=== PATIENT | female | born 1990 | race Caucasian/White ===

== ENCOUNTER → 2016-05-09 | Outpatient (CLI) | payer BC ==
[2016-05-09 10:33] LABS: CH 29.8; HCT 37.6 % (34.0-46.0); HDW 2.51; HGB 12.2 gm/dL (11.4-16.0); MCH 28.6 pg (25.0-35.0); MCHC 32.5 g/dL (31.0-37.0); MCV 87.9 fL (80.0-100.0); Mean Platelet Volume 7.5; RBC 4.28 m/uL (3.80-5.40); RDW 12.3 % (11.5-15.5); WBC 5.6 k/uL (3.8-10.6)
--- NOTE | 2016-05-09 10:44 | US ---
EXAMINATION TYPE: US OB <= 14 wk fetus DATE OF EXAM: 05/09/2016 10:08 AM COMPARISON: NONE CLINICAL HISTORY: Confirm Dates Z36. Abdominal cramping EXAM PERFORMED: Transabdominal (TA) EXAM MEASUREMENTS: GESTATIONAL AGE / DATING Physician Established: not established Dates by LMP: (13 weeks/5 days) EDC: 11/09/16 Dates by First Scan: no prior Dates by Current Scan for: (13 weeks/6 days) EDC: 11/08/16 MATERNAL ANATOMY Uterus: 15.5 x 6.2 x 9.8cm Right Ovary: 3.2 x 2.3 x 2.0cm Left Ovary: 3.8 x 1.2 x 2.2cm Post CDS / Adnexa: appears wnl Presence of free fluid: no GESTATION / SURVEY CRL: 7.8cm (13 weeks/6 days) Yolk Sac (normal less than 6mm): not seen Heart Rate: 154 bpm Rhythm: Normal IUP: Viable IUP Date of LMP: 02/03/16 Beta HcG (if available): unavailable TECHNOLOGIST IMPRESSION: Single viable IUP 13wks/6days with MARLY of 11/08/16 IMPRESSION: Viable intrauterine gestation with a gestational age of 13 weeks 6 days +/- 12 days. Nay mated date of confinement based on this examination is 11/08/2016.
[2016-05-09 10:55] LABS: Glucose 75 mg/dL (74-99); Non-African American GFR(MDRD) >60 (>60 ml/min/1.73 sqM)
[2016-05-09 11:25] LABS: Hepatitis B Surface Ag Index 0.05
[2016-05-10 06:37] LABS: HIV-1/HIV-2 Ab Screen NONREAC (NON REAC)
== END | disposition home or self-care (01) ==
LOC: RADUSWWP 09:42 → MERGE 09:42
PROVIDERS: ATTEND Obstetrics & Gynecology
DX: Z36 Encounter for antenatal screening of mother (principal); O26.811 Pregnancy related exhaustion and fatigue, first trimester; Z3A.13 13 weeks gestation of pregnancy
CPT/HCPCS: 36415; 76801; 82565; 82947; 85027; 86762; 86780; 86850; 86900; 86901; 87340; 87389

== ENCOUNTER → 2016-06-14 | Outpatient (CLI) | payer BC ==
--- NOTE | 2016-06-14 12:22 | US ---
EXAMINATION TYPE: US OB anatomy transabd DATE OF EXAM: 06/14/2016 11:51 AM COMPARISON: NONE HISTORY: LGA TECHNIQUE: EXAM MEASUREMENTS: GESTATIONAL AGE / DATING Physician Established: (18 weeks/6 days) EDC: 11/09/2016 Dates by LMP: (18 weeks/6 days) EDC: 11/09/2016 Dates by First Scan: (19 weeks/0 days) EDC: 11/08/2016 Dates by Current Scan for: (18 weeks/6 days) EDC: 11/09/2016 SURVEY IUP: Single PLACENTA: Posterior PREVIA: Low Lying MISHEL: 12.5 cm Normal CERVICAL LENGTH (transabdominal: norm > 3.0cm): 3.9 cm BIOMETRY PRESENTATION: Breech BPD: 4.2 cm 18 weeks / 6 days HC: 15.5 cm 18 weeks / 4 days AC: 12.9 cm 18 weeks / 4 days FL: 2.9 cm 19 weeks / 0 days ESTIMATED WEIGHT IN GRAMS: 251 grams ESTIMATED WEIGHT IN LBS/OZS: 0 lbs. 9 oz. WEIGHT PERCENTAGE BASED ON ESTABLISHED DATE: 33 % HC/AC: 1.2 FL/AC: 22% HEART RATE: 149 bpm RHYTHM: Normal ANATOMY SEEN (within normal limits): Lateral Vent (< 1 cm) 0.8 cm Cisterna Magna (< 1.1 cm) 0.4 cm Nuchal Fold (< 0.6 cm) 0.2 cm Cerebellum (varies with age) 1.7 cm Choroid Plexus (bilateral) Midline Falx Cavus Septi Pellucidi Four Chamber Heart Outflow tracts: LVOT Stomach Situs Nose / Lips Diaphragm Kidneys (bilateral) Bladder Cord Insert Three Vessel Cord Longitudinal Spine Transverse Spine Arms (bilateral) Legs (bilateral) ANATOMY SUBOPTIMALLY VISUALIZED: Outflow tracts: RVOT TECHNOLOGIST IMPRESSION: growth according to dates IMPRESSION: 1. Single live intrauterine with established gestational age of 18 weeks 6 days. Current ul trasound biometry remains exactly concordant placing the child at the 33rd percentile for weight. 2. Only the RVOT was suboptimally imaged. The global project manager notes a normal appearance during real-time scanning. If desired, the patient can be brought back for a rescan in 1 to 2 weeks for reimaging of t he RVOT. The remaining visualized anatomy appears normal. 3. Slightly low-lying posterior placenta approximately 2.5 cm from the internal cervical os.
== END | disposition home or self-care (01) ==
LOC: RADUSWWP 10:58 → MERGE 11:00
PROVIDERS: ATTEND Obstetrics & Gynecology
DX: O36.62X0 Maternal care for excessive fetal growth, second trimester, not applicable or unspecified (principal); Z3A.18 18 weeks gestation of pregnancy
CPT/HCPCS: 76811

== ENCOUNTER → 2016-07-25 | Outpatient (CLI) | payer BC ==
[2016-07-25 10:07] LABS: CH 29.9; CHCM 33.4; HDW 2.45; HGB 12.4 gm/dL (11.4-16.0); MCH 29.3 pg (25.0-35.0); MCHC 32.6 g/dL (31.0-37.0); Mean Platelet Volume 7.1; RBC 4.22 m/uL (3.80-5.40); RDW 12.9 % (11.5-15.5); WBC 11.5 k/uL (3.8-10.6)
== END | disposition home or self-care (01) ==
LOC: LABWHC1 08:49
PROVIDERS: ATTEND Obstetrics & Gynecology
DX: Z34.82 Encounter for supervision of other normal pregnancy, second trimester (principal); Z3A.00 Weeks of gestation of pregnancy not specified
CPT/HCPCS: 36415; 82950; 85027

== ENCOUNTER 2016-11-11 13:25 | Inpatient (IN) | payer BC ==
[2016-11-11] MEDS ORDERED: METHYLERGONOVINE 0.2 MG/ML 1 ML AMP IM PRN (13:42)
[2016-11-11] MEDS ORDERED: OXYTOCIN 10 UNIT/ML 1 ML VIAL IM PRN (13:42)
[2016-11-11] MEDS ORDERED: LIDOCAINE 1% (PF) 10 MG/ML (30 ML SDV) SQ PRN (13:42)
[2016-11-11] MEDS ORDERED: TERBUTALINE 1 MG/ML VIAL SQ PRN (13:42)
[2016-11-11] MEDS ORDERED: CARBOPROST TROMETHAMINE 250 MCG/ML 1 ML AMP IM PRN (13:42)
[2016-11-11 14:00] VITALS: BMI 32.5
[2016-11-11] MEDS: OXYTOCIN 20 UNITS/1000 ML NS 1,000 ML IV SCH (14:02)
[2016-11-11] MEDS: LACTATED RINGERS 1,000 ML IV SCH ×2 (14:02→23:39)
[2016-11-11 14:11] LABS: Basophils # (A) 0.1 k/uL (0-0.2); Basophils % (A) 0 %; CH 30.6; CHCM 33.9; Eosinophils # (A) 0.4 k/uL (0-0.7); Eosinophils % (A) 3 %; HCT 43.5 % (34.0-46.0); HDW 2.21; HGB 14.3 gm/dL (11.4-16.0); Luc # (Auto) 0.23; Luc % (Auto) 2; Lymphocytes # (A) 2.3 k/uL (1.0-4.8); Lymphocytes % (A) 15 %; MCH 29.8 pg (25.0-35.0); MCHC 32.8 g/dL (31.0-37.0); MCV 90.8 fL (80.0-100.0); Mean Platelet Volume 7.6; Monocytes # (A) 0.8 k/uL (0-1.0); Monocytes % (A) 6 %; Neutrophils # (A) 10.9 k/uL (1.3-7.7); Neutrophils % (A) 74 %; RBC 4.79 m/uL (3.80-5.40); RDW 13.7 % (11.5-15.5); WBC 14.7 k/uL (3.8-10.6)
[2016-11-11] MEDS: CLINDAMYCIN 900 MG in DEXTROSE 5% IN WATER 50 ML IVPB SCH ×4 (14:16→23:39)
[2016-11-11] MEDS ORDERED: SODIUM CHLORIDE 0.9% 100 ML BAG ONE (19:50)
[2016-11-11] MEDS ORDERED: BUPIVACAINE (PF) 0.25% 30 ML VIAL ONE (19:50)
[2016-11-11] MEDS ORDERED: fentaNYL (PF) 50 MCG/ML 5 ML AMP ONE (19:50)
[2016-11-11] MEDS ORDERED: BUPIVACAINE (PF) 0.25% 25 ML, fentaNYL (PF) 200 MCG in SODIUM CHLORIDE 0.9% 71 ML EPIDURAL ONE (20:19)
[2016-11-11] MEDS ORDERED: BENZOCAINE/MENTHOL SPRAY 1 GM/SPRAY AEROSOL TOPICAL PRN (23:04)
[2016-11-11] MEDS ORDERED: HYDROCORTISONE 2.5% RECTAL CREAM 30 GM TUBE RECTAL PRN (23:04)
[2016-11-11] MEDS ORDERED: WITCH HAZEL 1 EACH MED..PAD TOPICAL PRN (23:04)
[2016-11-11] MEDS ORDERED: diphenhydrAMINE 50 MG/ML 1 ML VIAL IVP PRN ×2 (23:04)
[2016-11-11] MEDS ORDERED: diphenhydrAMINE 25 MG CAP PO PRN (23:04)
[2016-11-11] MEDS ORDERED: Acetaminophen-Codeine 300-30mg TAB PO PRN ×2 (23:04)
[2016-11-11] MEDS ORDERED: ACETAMINOPHEN TAB 325 MG TAB PO PRN (23:04)
[2016-11-11] MEDS ORDERED: ZOLPIDEM 5 MG TAB PO PRN (23:04)
[2016-11-11] MEDS ORDERED: LANOLIN CREAM 5 GM TUBE TOPICAL PRN (23:04)
[2016-11-11] MEDS ORDERED: diphenhydrAMINE 50 MG CAP PO PRN (23:04)
[2016-11-11] MEDS ORDERED: SIMETHICONE 80 MG CHEWABLE PO PRN (23:04)
[2016-11-11] MEDS ORDERED: BISACODYL 10 MG SUPP RECTAL PRN (23:04)
--- NOTE | 2016-11-11 23:08 | P.HPOB ---
History of Present Illness H&P Date: 11/11/16 Chief Complaint: Intrauterine at 40 weeks: Oligohydramnios Patient is a 26 old at 40 weeks 2 days' gestation who was seen in the office for a ultrasound today for MISHEL and estimated weight. Estimated weight was the 30th percentile however the amniotic fluid index was 4.9. Due to oligohydramnios a discussion was held with the patient whether to induce her or to monitor through the weekend I did explain that there was really no benefit that I can come up with were not getting her delivered as she is past her due date and has oligohydramnios and at this point since we cannot verify that there is something else going on it would be safer prostaglandin deliver her. She was admitted for induction of labor and artificial rupture of membranes has been performed. Include clear fluid is noted. Her course otherwise had been unremarkable and she was feeling well at this time. Pertinent labs did include A+ blood type Rh and it was negative rubella was immune hepatitis B surface antigen and HIV and RPR were all negative. Group B strep was also negative. On physical exam vital signs are stable she is afebrile. Heart regular, lungs clear, extremities without pain. Osteopathic exam is unremarkable. She was dilated to approximately 2 cm 80% effaced -2 station and heart tones in the 130s 2040s and are reactive. Assessment intrauterine at term. Plan expect spontaneous vaginal delivery. Past Medical History Past Medical History: Asthma, Skin Disorder History of Any Multi-Drug Resistant Organisms: None Reported Past Surgical History: No Surgical Hx Reported Additional Past Surgical History / Comment(s): wisdom teeth Past Anesthesia/Blood Transfusion Reactions: No Reported Reaction Past Psychological History: No Psychological Hx Reported Smoking Status: Former smoker Past Alcohol Use History: Occasional Past Drug Use History: None Reported - Past Family History Father Family Medical History: Hypertension Medications and Allergies Home Medications Medication Instructions Recorded Confirmed Type Albuterol Inhaler [Ventolin 2 puff INHALATION Q4HR PRN 08/13/13 11/11/16 History Inhaler] Allergies Allergy/AdvReac Type Severity Reaction Status Date / Time Penicillins Allergy Nausea & Verified 11/11/16 13:27 Vomiting sesame seed Allergy Anaphylaxis Verified 11/11/16 13:29 Exam Osteopathic Statement: *. No significant issues noted on an osteopathic structural exam other than those noted in the History and Physical/Consult. - Vital Signs Vital signs: Vital Signs Temp Pulse Resp BP Pulse Ox 11/11/16 22:54 97.4 F L 90 17 130/69 96 11/11/16 13:26 97.2 F L 96 14 133/78 Intake and Output 11/11/16 11/11/16 11/12/16 14:59 22:59 06:59 Intake Total 900 Balance 900 Intake: IV 900 Clindamycin 900 mg In 900 Dextrose 5% in Water 50 ml @ 100 mls/hr IVPB Q8H [facility] Rx#:[id number] Other: # Voids 0 Weight 86.183 kg Patient Weight 11/12/16 06:59 Weight 86.183 kg Results Result Diagrams: 11/11/16 14:00 Abnormal Lab Results - Last 24 Hours (Table) 11/11/16 Range/Units 14:00 WBC 14.7 H (3.8-10.6) k/uL Neutrophils # 10.9 H (1.3-7.7) k/uL
--- NOTE | 2016-11-11 23:09 | P.PROBDLV ---
Vaginal Delivery Note - . Vaginal Delivery Note: Patient progressed complete and pushing with spontaneous vaginal delivery of a viable female over an intact perineum. Falling deliver the head interim posterior shoulders were easily delivered with gentle downward and upward traction followed by the remainder the baby. Mouth and nares were then bulb suctioned and baby was placed on the mother's abdomen where the umbilical cord was allowed to pulsate for 30 seconds prior to clamping and cutting. Nursery personnel was then present to assume care. Placenta was then delivered intact and Pitocin was added to the IV. scores were 8 and 9 at one and 5 minutes respectively and the weight was 7 lbs. 0 oz. Both mother and baby appear stable following delivery.
[2016-11-12] MEDS: IBUPROFEN 600 MG TAB PO PRN ×3 (05:25→19:52)
--- NOTE | 2016-11-12 08:23 | P.PNOBGVD ---
Subjective - Subjective Principal diagnosis: day 1 Interval history: Patient is involuting, voiding and she is tolerating her diet. She voices no complaints. We'll continue care for today. With expectation for discharge home tomorrow. Patient reports: Reports appetite normal, Reports voiding normally, Reports pain well controlled, Reports ambulating normally [place]: doing well Objective - Latest Vital Signs Latest vital signs: Vital Signs Temp Pulse Resp BP Pulse Ox 11/12/16 04:00 98.2 F 92 17 126/75 97 11/12/16 00:24 96.4 F L 88 18 140/61 98 11/11/16 23:54 84 17 120/66 11/11/16 23:39 90 16 117/71 11/11/16 23:24 86 18 117/77 11/11/16 23:09 84 16 118/64 11/11/16 22:54 90 17 130/69 96 11/11/16 22:37 97.4 F L 100 18 123/67 11/11/16 13:26 97.2 F L 96 14 133/78 Intake and Output 11/11/16 11/12/16 11/12/16 22:59 06:59 14:59 Other: # Voids 0 1 - Exam Lungs: bilateral: normal Chest: Normal S1, Normal S2 Extremities: Present: normal Abdomen: Present: normal appearance, soft Uterus: Present: normal, firm - Labs Labs: Abnormal Lab Results - Last 24 Hours (Table) 11/11/16 Range/Units 14:00 WBC 14.7 H (3.8-10.6) k/uL Neutrophils # 10.9 H (1.3-7.7) k/uL
[2016-11-12] MEDS: SENNOSIDES-DOCUSATE SODIUM 1 EACH TAB PO SCH ×2 (08:27→19:52)
[2016-11-13] MEDS: CLINDAMYCIN 900 MG in DEXTROSE 5% IN WATER 50 ML IVPB SCH ×4 (04:13→04:14)
[2016-11-13] MEDS: LACTATED RINGERS 1,000 ML IV SCH (04:13)
[2016-11-13] MEDS: OXYTOCIN 20 UNITS/1000 ML NS 1,000 ML IV SCH (04:14)
[2016-11-13] MEDS: IBUPROFEN 600 MG TAB PO PRN (06:07)
[2016-11-13 08:32] VITALS: BP 128/75; PULSE 128; RESP 16; TEMP 95.6
--- NOTE | 2016-11-13 11:19 | P.DS ---
Providers Date of admission: 11/11/16 13:25 Expected date of discharge: 11/13/16 Attending physician: Albino Robertson [facility] Course: Patient is doing very well day 2. She is ambulating, voiding, and she is tolerating a diet. She voices no placed. Vital signs are stable and afebrile. Heart regular, lungs clear, extremities without pain. Abdomen is soft uterus is firm lochia is reported be light. Assessment day 2. Plan discharged home follow up with Dr. Loomis in 6 weeks. Prescription for Motrin has been provided her request. Patient Condition at Discharge: Good Plan - Discharge Summary New Discharge Prescriptions: No Action Albuterol Inhaler [Ventolin Inhaler] 2 puff INHALATION Q4HR PRN PRN Reason: Shortness Of Breath Or Wheezing Discharge Medication List Albuterol Inhaler [Ventolin Inhaler] 2 puff INHALATION Q4HR PRN 08/13/13 [ History] Follow up Appointment(s)/Referral(s): Consuelo Loomis DO [Doctor of Osteopathic Medicine] - 6 Weeks Activity/Diet/Wound Care/Special Instructions: No heavy lifting, limit stairs and driving and pelvic rest. If any high temperatures, heavy bleeding, or severe pain call my office Discharge Disposition: HOME SELF-CARE
== END 2016-11-13 12:24 | disposition home or self-care (01) | DRG 775 ==
LOC: 4FBP 13:25
PROVIDERS: ADMIT Obstetrics & Gynecology; ATTEND Obstetrics & Gynecology
PROC: 10E0XZZ Delivery of Products of Conception, External Approach (ICD-10-PCS; principal; 2016-11-11)
PROC: 10907ZC Drainage of Amniotic Fluid, Therapeutic from Products of Conception, Via Natural or Artificial Opening (ICD-10-PCS; 2016-11-11)
PROC: 3E033VJ Introduction of Other Hormone into Peripheral Vein, Percutaneous Approach (ICD-10-PCS; 2016-11-11)
PROC: 3E0S3NZ Introduction of Analgesics, Hypnotics, Sedatives into Epidural Space, Percutaneous Approach (ICD-10-PCS; 2016-11-11)
DX: O41.03X0 Oligohydramnios, third trimester, not applicable or unspecified (principal); J45.909 Unspecified asthma, uncomplicated; O48.0 Post-term pregnancy; O99.52 Diseases of the respiratory system complicating childbirth; Z3A.40 40 weeks gestation of pregnancy; Z37.0 Single live birth; Z82.49 Family history of ischemic heart disease and other diseases of the circulatory system; Z87.891 Personal history of nicotine dependence; Z87.2 Personal history of diseases of the skin and subcutaneous tissue; Z88.0 Allergy status to penicillin; Z91.018 Allergy to other foods
CPT/HCPCS: 85025; 88307

== ENCOUNTER → 2018-01-01 | Outpatient (CLI) | payer BC ==
--- NOTE | 2018-01-01 10:50 | US ---
EXAMINATION TYPE: US venous doppler duplex LE LT DATE OF EXAM: 01/01/2018 10:36 AM COMPARISON: NONE CLINICAL HISTORY: M79.605 Left leg pain. Patient states she fell while gently kicking a ball. Leg pa in. No swelling. No redness. Feels tingly like foot is falling asleep. No hx of blood clots or on blood thinners. SIDE PERFORMED: Left TECHNIQUE: The lower extremity deep venous system is examined utilizing real time linear array sonog tommy with graded compression, doppler sonography and color-flow sonography. VESSELS IMAGED: External Iliac Vein (EIV) Common Femoral Vein Deep Femoral Vein Greater Saphenous Vein * Femoral Vein Popliteal Vein Small Saphenous Vein * Proximal Calf Veins (* superficial vessels) Grayscale, color doppler, spectral doppler imaging performed of the deep veins of the left lower extr emity. There is normal flow, compressibility, vascular waveforms. Left Leg: Negative for DVT IMPRESSION: No sonographic evidence of deep venous thrombosis within the left lower extremity.
== END | disposition home or self-care (01) ==
LOC: RADUSWWP 10:16
PROVIDERS: ATTEND Family Medicine
DX: M79.605 Pain in left leg (principal)

== ENCOUNTER 2019-06-05 13:47 | Observation (INO) | payer OTHER, BC ==
[2019-06-05] MEDS ORDERED: SODIUM CHLORIDE 0.9% 1,000 ML IV STA (14:11)
[2019-06-05] MEDS ORDERED: BENZOCAINE SPRAY 1 CAN TOPICAL STA (14:11)
[2019-06-05] MEDS ORDERED: DEXAMETHASONE SOD PHOSPHATE 10 MG/ML 1 ML VIAL IV STA (14:11)
[2019-06-05] MEDS ORDERED: CLINDAMYCIN 900 MG in DEXTROSE 5% IN WATER 50 ML IVPB STA ×2 (14:11)
[2019-06-05] MEDS ORDERED: KETOROLAC 30 MG/ML 1 ML VIAL IVP STA (14:14)
[2019-06-05 14:33] LABS: Basophils % (A) 0 %; Eosinophils # (A) 0.1 k/uL (0-0.7); Eosinophils % (A) 0 %; HCT 38.2 % (34.0-46.0); HGB 12.6 gm/dL (11.4-16.0); Lymphocytes # (A) 1.2 k/uL (1.0-4.8); Lymphocytes % (A) 5 %; MCH 29.3 pg (25.0-35.0); MCHC 32.9 g/dL (31.0-37.0); MCV 89.1 fL (80.0-100.0); Mean Platelet Volume 7.4; Monocytes # (A) 1.4 k/uL (0-1.0); Monocytes % (A) 6 %; Neutrophils # (A) 19.5 k/uL (1.3-7.7); Neutrophils % (A) 86 %; Platelet Count 306 k/uL (150-450); RBC 4.29 m/uL (3.80-5.40); RDW 11.8 % (11.5-15.5); WBC 22.7 k/uL (3.8-10.6)
[2019-06-05] MEDS ORDERED: ONDANSETRON 4 MG/2 ML VIAL IVP STA (14:38)
[2019-06-05 14:40] LABS: ALT 27 U/L (4-34); AST 23 U/L (14-36); African American GFR (CKD) >90 (>60 ml/min/1.73 sqM); Albumin 3.8 g/dL (3.5-5.0); Alkaline Phosphatase 79 U/L (38-126); Anion Gap 11 mmol/L; Blood Urea Nitrogen 11 mg/dL (7-17); Carbon Dioxide 26 mmol/L (22-30); Chloride 101 mmol/L (98-107); Glucose 92 mg/dL (74-99); Non-African American GFR(CKD) >90 (>60 ml/min/1.73 sqM); Potassium 3.4 mmol/L (3.5-5.1); Sodium 138 mmol/L (137-145); Total Bilirubin 1.4 mg/dL (0.2-1.3)
--- NOTE | 2019-06-05 14:46 | ED ---
ENT HPI - General Source: patient Mode of arrival: ambulatory Limitations: no limitations <Robbi Faust - Last Filed: 06/05/19 15:41> <Jakob Washington - Last Filed: 06/11/19 16:16> - General Chief complaint: ENT Stated complaint: Sore throat Time Seen by Provider: 06/05/19 13:57 - History of Present Illness Initial comments: Patient a 28-year-old female presenting to emergency Department with chief comp laint of sore throat. Patient states she was diagnosed with strep pharyngitis 3 days ago at an urgent care and was started on Keflex. Patient reports no improvement of symptoms. Patient does report dysphagia or odontophagia. Please refer changes in voice. Does report fevers at home which she has been able to control with Tylenol and Motrin. Denies any dyspnea or drooling. Denies any swelling under the chin. Denies any nausea vomiting or diarrhea. (Robbi Faust) - Related Data Home Medications Medication Instructions Recorded Confirmed Albuterol Inhaler [Ventolin Hfa 2 puff INHALATION RT-Q6H PRN 08/13/13 06/05/19 Inhaler] Acetaminophen Tab [Tylenol] 500 - 1,000 mg PO Q6H PRN 06/05/19 06/05/19 Citalopram Hydrobromide [CeleXA] 20 mg PO HS 06/05/19 06/05/19 valACYclovir HCL [Valtrex] 500 mg PO DAILY PRN 06/05/19 06/05/19 Previous Rx's Medication Instructions Recorded Clindamycin HCl [Cleocin] 300 mg PO Q6HR #28 cap 06/07/19 Naproxen [Naprosyn] 250 mg PO TID #21 tab 06/07/19 predniSONE 0 mg PO DIRECTED #10 tab 06/07/19 Allergies Allergy/AdvReac Type Severity Reaction Status Date / Time Penicillins Allergy Unknown Verified 06/05/19 16:07 Childhood sesame seed Allergy Anaphylaxis Verified 06/05/19 16:07 Review of Systems ROS Other: All systems not noted in ROS Statement are negative. <Robbi Faust - Last Filed: 06/05/19 15:41> ROS Other: All systems not noted in ROS Statement are negative. <Jakob Washington - Last Filed: 06/11/19 16:16> ROS Statement: Those systems with pertinent positive or pertinent negative responses have been documented in the HPI. Past Medical History Past Medical History: Asthma, Skin Disorder History of Any Multi-Drug Resistant Organisms: None Reported Past Surgical History: No Surgical Hx Reported Additional Past Surgical History / Comment(s): wisdom teeth Past Anesthesia/Blood Transfusion Reactions: No Reported Reaction Past Psychological History: No Psychological Hx Reported Smoking Status: Former smoker Past Alcohol Use History: Occasional Past Drug Use History: None Reported - Past Family History Father Family Medical History: Hypertension <GovindRobbi - Last Filed: 06/05/19 15:41> - Past Family History Father Family Medical History: Hypertension Additional Family Medical History / Comment(s): ETOH Mother Additional Family Medical History / Comment(s): mental disorder undiagnosed, ETOH <Jakob Washington N - Last Filed: 06/11/19 16:16> General Exam Limitations: no limitations General appearance: alert, in no apparent distress Head exam: Present: atraumatic, normocephalic, normal inspection Eye exam: Present: normal appearance Pupils: Present: normal accommodation ENT exam: Present: normal exam, mucous membranes moist, TM's normal bilaterally, normal external ear exam. Absent: normal oropharynx (Right-sided tonsillar enlargement and exudates. Peritonsillar abscess. Uvula midline.) Neck exam: Present: normal inspection, full ROM, lymphadenopathy Respiratory exam: Present: normal lung sounds bilaterally. Absent: respiratory distress, wheezes Cardiovascular Exam: Present: normal rhythm, tachycardia, normal heart sounds Extremities exam: Present: normal inspection, full ROM Back exam: Present: normal inspection, full ROM Neurological exam: Present: alert, oriented X3 Psychiatric exam: Present: normal affect, normal mood Skin exam: Present: warm, dry, intact, normal color <GovindRobbi - Last Filed: 06/05/19 15:41> Course Vital Signs 06/05/19 06/05/19 06/05/19 13:49 16:45 17:45 Temperature 98.9 F 99.1 F Pulse Rate 115 H 95 Respiratory 20 18 18 Rate Blood Pressure 119/74 112/68 O2 Sat by Pulse 99 96 Oximetry Procedures - Incision & Drainage Consent Obtained: verbal consent Site: oral Size (cm): 3 Anesthetic Used: lidocaine 1% Sterile Field Used?: No Needle Aspiration Performed?: Yes I&D Drainage Obtained: Pus, Blood Patient Tolerated Procedure: well <Jakob Washington - Last Filed: 06/11/19 16:16> Medical Decision Making - Lab Data Result diagrams: 06/05/19 14:20 06/05/19 14:20 <Robbi aFust - Last Filed: 06/05/19 15:41> - Lab Data Result diagrams: 06/07/19 10:48 06/05/19 14:20 <Jakob Washington - Last Filed: 06/11/19 16:16> - Medical Decision Making Patient is a 28-year-old female presenting to emergency department with a chief complaint of sore throat. Patient was diagnosed with strep pharyngitis 3 days ago and started on Keflex. No improvement symptoms. On exam patient does appear to have right peritonsillar abscess. Patient was given fluids, antiemetics, analgesia, Decadron and started on clindamycin. Attempted incision and drainage by . CBC shows a white count of 22K. lactate pending. Blood cultures pending. Patient fell outpatient treatment. Patient will be admitted for further medical management. Admitting physician is Dr Agrawal ENT on consult (Robbi Faust) - Lab Data Lab Results 06/05/19 06/05/19 06/05/19 Range/Units 14:20 14:20 15:15 WBC 22.7 H (3.8-10.6) k/uL RBC 4.29 (3.80-5.40) m/uL Hgb 12.6 (11.4-16.0) gm/dL Hct 38.2 (34.0-46.0) % MCV 89.1 (80.0-100.0) fL MCH 29.3 (25.0-35.0) pg MCHC 32.9 (31.0-37.0) g/dL RDW 11.8 (11.5-15.5) % Plt Count 306 (150-450) k/uL Neutrophils % 86 % Lymphocytes % 5 % Monocytes % 6 % Eosinophils % 0 % Basophils % 0 % Neutrophils # 19.5 H (1.3-7.7) k/uL Lymphocytes # 1.2 (1.0-4.8) k/uL Monocytes # 1.4 H (0-1.0) k/uL Eosinophils # 0.1 (0-0.7) k/uL Basophils # 0.0 (0-0.2) k/uL Sodium 138 (137-145) mmol/L Potassium 3.4 L (3.5-5.1) mmol/L Chloride 101 (98-107) mmol/L Carbon Dioxide 26 (22-30) mmol/L Anion Gap 11 mmol/L BUN 11 (7-17) mg/dL Creatinine 0.58 (0.52-1.04) mg/dL Est GFR (CKD-EPI)AfAm >90 (>60 ml/min/1.73 sqM) Est GFR (CKD-EPI)NonAf >90 (>60 ml/min/1.73 sqM) Glucose 92 (74-99) mg/dL Plasma Lactic Acid Ajit 0.9 (0.7-2.0) mmol/L Calcium 9.0 (8.4-10.2) mg/dL Total Bilirubin 1.4 H (0.2-1.3) mg/dL AST 23 (14-36) U/L ALT 27 (4-34) U/L Alkaline Phosphatase 79 (38-126) U/L Total Protein 7.0 (6.3-8.2) g/dL Albumin 3.8 (3.5-5.0) g/dL Disposition Is patient prescribed a controlled substance at d/c from ED?: No Time of Disposition: 15:43 <Robbi Faust - Last Filed: 06/05/19 15:41> <Jakob [place] - Last Filed: 06/11/19 16:16> Clinical Impression: Sore throat, Peritonsillar abscess Disposition: ADMITTED IP TO THIS HOSP Condition: Good
[2019-06-05] MEDS ORDERED: LIDOCAINE 1% INJ 10MG/ML (20 ML MDV) SQ ONE (15:19)
[2019-06-05] MEDS ORDERED: LORazepam 2 MG/ML INJ IV PRN (15:44)
[2019-06-05] MEDS ORDERED: ONDANSETRON 4 MG/2 ML VIAL IVP PRN (15:44)
[2019-06-05] MEDS ORDERED: NALOXONE 0.4 MG/ML 1 ML VIAL IV PRN (15:44)
[2019-06-05] MEDS ORDERED: MORPHINE SULFATE 4 MG/ML SYRINGE IV PRN (15:44)
[2019-06-05] MEDS: SODIUM CHLORIDE 0.9% 1,000 ML IV SCH (16:42)
[2019-06-05] MEDS ORDERED: valACYclovir 500 MG TAB PO PRN (20:48)
[2019-06-05] MEDS ORDERED: NAPROXEN 250 MG TAB PO PRN (20:53)
[2019-06-05] MEDS: DEXAMETHASONE SOD PHOSPHATE 4 MG/ML 1 ML VIAL IV SCH (21:14)
[2019-06-05] MEDS: ACETAMINOPHEN TAB 500 MG TAB PO PRN (21:15)
[2019-06-05] MEDS: CITALOPRAM HYDROBROMIDE 20 MG TAB PO SCH (21:15)
--- NOTE | 2019-06-05 22:30 | PCN ---
PROCEDURE NOTE PREOPERATIVE DIAGNOSIS: Right peritonsillar abscess. POSTOPERATIVE DIAGNOSIS: Right peritonsillar abscess. PROCEDURE PERFORMED: Incision, drainage, right peritonsillar abscess. ANESTHESIA: Local. ESTIMATED BLOOD LOSS: Minimal. Less than 2 mL. COMPLICATIONS: None. FINDINGS: Right peritonsillar abscess. This was not cultured as this reportedly was cultured already from the aspiration. DESCRIPTION OF PROCEDURE: The patient was in her hospital bed. Informed consent was obtained. Topical Hurricaine spray was applied to the right peritonsillar area, followed by 1% lidocaine with 1:100,000 epinephrine infused submucosally in the right superior peritonsillar space. A total of 1 mL was used. This left to work for 7 minutes of vasoconstrictive effect. A 1 cm incision was then made in the right peritonsillar space into the abscess cavity with minimal purulence recovered, which was suctioned immediately and this ceased draining and with approximately 2 mL of purulence noted and the bleeding stopped spontaneously. The patient tolerated the procedure well with no complications. MMODL / IJN: [id number] /
--- NOTE | 2019-06-05 22:30 | CONS ---
CONSULTATION REASON FOR CONSULTATION: Right peritonsillar abscess. HISTORY OF PRESENT ILLNESS: The patient has an approximate 5-day history of sore throat, especially on the right and this progressed and 3 days ago she was seen at Urgent Care and placed on Keflex for strep positive pharyngitis, tonsillitis. She actually worsened on Keflex. She has had continued sore throat and dysphagia was also soreness with swallowing. She has had no respiratory difficulty. She had subjective fever at home. She has not had difficulty with her tonsils previously. Dr. Lora performed a needle aspiration of a right peritonsillar abscess and she has had improvement of symptoms already. She is going to be admitted due to a dehydration and tachycardia as well as elevated white blood count. HOME MEDICATIONS: Albuterol, ibuprofen, Keflex. ALLERGIES: PENICILLIN, SESAME SEED. REVIEW OF SYSTEMS: Pertinent positive and negative response were as documented in HPI. All other systems and review of systems are negative. PAST MEDICAL HISTORY: Positive for asthma, skin disorder. PAST SURGICAL HISTORY: Is none other than wisdom teeth extraction. SOCIAL HISTORY: Former smoker. Does not now. Alcohol occasional. Drug use: None. FAMILY HISTORY: Positive for hypertension. Otherwise unremarkable. PHYSICAL EXAM: General: The patient is a well-developed adult white female in no distress, handling her own secretions. No stridor. Does have a little bit of some mild fullness to the voice. HEENT: Normocephalic and atraumatic. Ears bilaterally canals clear. Tympanic membranes unremarkable, mobile. Nose shows no drainage or obstruction. Oropharynx shows tonsils +3 on the right, +2 on the left with peritonsillar ecchymosis and erythema on the right. With exudate on the right tonsil. NECK: Supple without adenopathy or tenderness. Minimal trismus on the oral exam. ASSESSMENT: Right peritonsillar abscess. PLAN: I have reviewed findings with the patient in detail and I recommend proceeding with incision and drainage of the abscess as even though this has been aspirated, the likelihood that this recurs without incision and drainage is high. I reviewed the indications, alternatives, potential benefits and risks of procedure with the patient with the risks including, but not inclusive of the risks of local anesthesia, bleeding, infection, scarring, recurrence, need for further procedures in the future depending on the healing and response to treatment. The patient understands these risks and does desire to proceed. This was performed in the ER. She is going to be admitted under the internal medicine service for overnight observation and IV fluids, IV antibiotics and IV steroids. She is on clindamycin, which is a good choice for this given her PENICILLIN ALLERGY and to cover anaerobes. Likely she will be able to be discharged in the morning to further complete a course of clindamycin and a tapering steroid regimen. She can follow up in my office in 1 week. However, if she has resolution of symptoms then and she heals well, then she could follow up as needed. I reviewed all this with her today. If there are questions or concerns, please feel free to contact me. HORTENCIA / DILIAN: [id number] /
[2019-06-06] MEDS: CLINDAMYCIN 900 MG in DEXTROSE 5% IN WATER 50 ML IVPB SCH ×6 (00:19→17:36)
[2019-06-06] MEDS: HYDROmorphone 0.5 MG/0.5 ML SYRINGE IVP PRN ×2 (04:20→10:22)
[2019-06-06] MEDS: SODIUM CHLORIDE 0.9% 1,000 ML IV SCH ×2 (06:09→21:09)
[2019-06-06] MEDS: DEXAMETHASONE SOD PHOSPHATE 4 MG/ML 1 ML VIAL IV SCH ×3 (06:09→22:18)
[2019-06-06 12:32] LABS: HCT 32.7 % (34.0-46.0); HGB 10.7 gm/dL (11.4-16.0); MCH 29.4 pg (25.0-35.0); MCHC 32.8 g/dL (31.0-37.0); MCV 89.6 fL (80.0-100.0); Mean Platelet Volume 7.9; Platelet Count 277 k/uL (150-450); RBC 3.64 m/uL (3.80-5.40); RDW 12.1 % (11.5-15.5); WBC 19.8 k/uL (3.8-10.6)
[2019-06-06] MEDS: ACETAMINOPHEN TAB 500 MG TAB PO PRN (14:26)
[2019-06-06] MEDS: ENOXAPARIN 40 MG/0.4 ML SYRINGE SQ SCH (14:26)
[2019-06-06] MEDS ORDERED: NAPROXEN 250 MG TAB PO STA (20:22)
--- NOTE | 2019-06-06 20:32 | P.HPIM ---
History of Present Illness H&P Date: 06/06/19 Chief Complaint: painful throat History of presenting complaint: This is a very pleasant 28-year-old patient of Dr. Lulú Odell. Chronic stable medical conditions include asthma, eczema, anxiety depression. Last Monday she started having sinus symptoms. Over the weekend she progressed to get symptoms affecting her throat. Throat became rather sore and tender. Went to the urgent care she was started on Keflex. Following day she felt much worse and decided to come here. Her right cerebral total of a swollen tender red. And education is tested positive for strep throat. She had fever chills and finding it very difficult to swallow. I&D was carried out the ER. An ENT was consulted. Yesterday evening Dr. Null from ENT at further I&D and some pus was obtained. Feeling better this morning. Did tolerate some liquids. Patient otherwise no recent good health. Review of systems: GEN.: Fever or chills EYES: None HEENT: As above NECK: None RESPIRATORY: As above CARDIOVASCULAR: None GASTROINTESTINAL: None GENITOURINARY: None MUSCULOSKELETAL: None LYMPHATICS: None HEMATOLOGICAL: None PSYCHIATRY: None NEUROLOGICAL: None Past medical history to include: Asthma, eczema, anxiety depression Social history: , has 2 small children at home. 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 . Nobody is at home was sick. Physical examination: VITAL SIGNS: 98.9, 115, 20, blood pressure 119 nose and he 4, 99% room air GENERAL: BMI 25.8, sitting up in a chair, awake. EYES: Pupils equal. Conjunctiva normal. HEENT: [External appearance of nose and ears normal, oral cavity soreness in the right tonsillar fossa with swelling redness. NECK: JVD not raised; masses not palpable. HEART: First and second heart sounds are normal; no edema. LUNGS: Respiratory rate normal; clear to auscultation. ABDOMEN: Soft, nontender, liver spleen not palpable, no masses palpable. PSYCH: Alert and oriented x3; mood and affect slightly anxiousl. NEUROLOGICAL: Cranial nerves grossly intact; no facial asymmetry, power and sensation grossly intact. LYMPHATICS: No lymph nodes palpable in the axilla and neck INVESTIGATIONS, reviewed in the clinical context: White count 22.7, hemoglobin 12.6, potassium 3.4, creatinine 0.58 Assessment: -Acute right tonsillar abscess secondary to Streptococcus pharyngitis -Acute streptococcal pharyngitis -Intubated asthma -Anxiety depression otherwise specified Plan: Patient is continued on IV clindamycin and steroids. Status post I&D by ENT. Patient told to advance liquids are tolerated. Also include warm water with salt gargles every 2 or 3 hours. Anti-inflammation 3 will be added. Patient be watched for 24 hours. Patient told to avoid narcotics. Encouraged aberration. IV fluids. Lovenox for DVT prophylaxis. Past Medical History Past Medical History: Asthma, Skin Disorder Additional Past Medical History / Comment(s): eczema History of Any Multi-Drug Resistant Organisms: None Reported Past Surgical History: No Surgical Hx Reported Additional Past Surgical History / Comment(s): wisdom teeth Past Anesthesia/Blood Transfusion Reactions: No Reported Reaction Past Psychological History: Anxiety, Depression Additional Psychological History / Comment(s): see therapist and is on medications. Smoking Status: Former smoker Past Alcohol Use History: Occasional Past Drug Use History: None Reported - Past Family History Father Family Medical History: Hypertension Additional Family Medical History / Comment(s): ETOH Mother Additional Family Medical History / Comment(s): mental disorder undiagnosed, ETOH Medications and Allergies Home Medications Medication Instructions Recorded Confirmed Type Albuterol Inhaler [Ventolin 2 puff INHALATION RT-Q6H PRN 08/13/13 06/05/19 History Inhaler] Acetaminophen Tab [Tylenol Tab] 500 - 1,000 mg PO Q6H PRN 06/05/19 06/05/19 History Cephalexin [Keflex] 500 mg PO TID 06/05/19 06/05/19 History Citalopram Hydrobromide [CeleXA] 20 mg PO HS 06/05/19 06/05/19 History Ibuprofen [Motrin] 600 mg PO Q8H PRN 06/05/19 06/05/19 History valACYclovir HCL [Valtrex] 500 mg PO DAILY PRN 06/05/19 06/05/19 History Allergies Allergy/AdvReac Type Severity Reaction Status Date / Time Penicillins Allergy Unknown Verified 06/05/19 16:07 Childhood sesame seed Allergy Anaphylaxis Verified 06/05/19 16:07 Physical Exam Vitals: Vital Signs Temp Pulse Pulse Resp BP BP Pulse Ox 06/06/19 08:20 97.8 F 63 18 106/70 97 06/06/19 08:05 97.8 F 62 16 106/73 97 06/05/19 23:00 97.5 F L 80 18 107/69 97 06/05/19 20:00 98.2 F 84 18 113/80 100 06/05/19 18:30 98.3 F 98 18 122/84 98 06/05/19 17:45 18 06/05/19 16:45 99.1 F 95 18 112/68 96 06/05/19 13:49 98.9 F 115 H 20 119/74 99 Intake and Output 06/05/19 06/06/19 06/06/19 22:59 06:59 14:59 Intake Total 1745 580 Balance 1745 580 Intake: Oral 1745 580 Other: # Voids 1 Weight 74.843 kg Results CBC & Chem 7: 06/06/19 12:07 06/05/19 14:20 Labs: Abnormal Lab Results - Last 24 Hours (Table) 06/05/19 06/05/19 Range/Units 14:20 14:20 WBC 22.7 H (3.8-10.6) k/uL Neutrophils # 19.5 H (1.3-7.7) k/uL Monocytes # 1.4 H (0-1.0) k/uL Potassium 3.4 L (3.5-5.1) mmol/L Total Bilirubin 1.4 H (0.2-1.3) mg/dL Thrombosis Risk Factor Assmnt - Choose All That Apply Any of the Below Risk Factors Present?: No Other Risk Factors: No Other congenital or acquired thrombophilia - If yes, enter type in comment: No Thrombosis Risk Factor Assessment Level: Very Low Risk
[2019-06-06] MEDS: CITALOPRAM HYDROBROMIDE 20 MG TAB PO SCH (21:13)
[2019-06-07] MEDS: CLINDAMYCIN 900 MG in DEXTROSE 5% IN WATER 50 ML IVPB SCH ×4 (00:11→08:53)
[2019-06-07] MEDS: DEXAMETHASONE SOD PHOSPHATE 4 MG/ML 1 ML VIAL IV SCH (06:13)
[2019-06-07 08:51] VITALS: BP 119/55; PULSE 67
[2019-06-07] MEDS: ENOXAPARIN 40 MG/0.4 ML SYRINGE SQ SCH (08:59)
[2019-06-07] MEDS ORDERED: NAPROXEN 250 MG TAB PO SCH (09:00)
[2019-06-07 11:27] LABS: Basophils # (A) 0.1 k/uL (0-0.2); Basophils % (A) 0 %; Eosinophils % (A) 0 %; HCT 33.7 % (34.0-46.0); Lymphocytes # (A) 1.5 k/uL (1.0-4.8); Lymphocytes % (A) 9 %; MCH 29.3 pg (25.0-35.0); MCHC 32.5 g/dL (31.0-37.0); MCV 90.1 fL (80.0-100.0); Mean Platelet Volume 7.6; Monocytes # (A) 0.7 k/uL (0-1.0); Monocytes % (A) 4 %; Neutrophils # (A) 14.3 k/uL (1.3-7.7); Neutrophils % (A) 84 %; Platelet Count 355 k/uL (150-450); RBC 3.74 m/uL (3.80-5.40); RDW 12.2 % (11.5-15.5); WBC 16.9 k/uL (3.8-10.6)
[2019-06-07] MEDS ORDERED: predniSONE 20 MG TAB PO STA (12:12)
[2019-06-07 12:49] VITALS: RESP 20; TEMP 97.9
--- NOTE | 2019-06-07 18:34 | P.DS ---
Providers Date of admission: 06/05/19 15:50 Expected date of discharge: 06/07/19 Attending physician: Phuc Agrawal Consults: 06/05/19 15:44 Consult Physician Stat Consulting Provider: Dmitri Contreras Reason/Comments: Peritonsillar abscess, failure of outpatient treatment Do you want consulting provider notified?: Yes Primary care physician: Kevin Odell [facility] Course: Chief Complaint: painful throat History of presenting complaint: This is a very pleasant 28-year-old patient of Dr. Lulú Odell. Chronic stable medical conditions include asthma, eczema, anxiety depression. Last Monday she started having sinus symptoms. Over the weekend she progressed to get symptoms affecting her throat. Throat became rather sore and tender. Went to the urgent care she was started on Keflex. Following day she felt much worse and decided to come here. Her right cerebral total of a swollen tender red. And education is tested positive for strep throat. She had fever chills and finding it very difficult to swallow. I&D was carried out the ER. An ENT was consulted. Yesterday evening Dr. Null from ENT at further I&D and some pus was obtained. Feeling better this morning. Did tolerate some liquids. Patient otherwise no recent good health. Admitted with right tonsillar abscess secondary to Streptococcus pharyngitis.-P ut on clindamycin here. Responded well. Today-feeling much better. Tolerating a diet. Up and about. No fever. Care was discussed with the patient. Steroids to be rapidly tapered Consultation: Dr. Null from ENT Physical examination: VITAL SIGNS: 97.9, 67, 20, blood pressure 119/55, 96% on room air GENERAL: Sitting up, comfortable EYES: Pupils equal. Conjunctiva normal. HEENT: [External appearance of nose and ears normal, oral cavity soreness in the right tonsillar fossa-inflammation improving. NECK: JVD not raised; masses not palpable. HEART: First and second heart sounds are normal; no edema. LUNGS: Respiratory rate normal; clear to auscultation. ABDOMEN: Soft, nontender, liver spleen not palpable, no masses palpable. PSYCH: Alert and oriented x3; mood and affect slightly anxiousl. INVESTIGATIONS, reviewed in the clinical context: White count 16.9 hemoglobin 11 Previous testing White count 22.7, hemoglobin 12.6, potassium 3.4, creatinine 0.58 Assessment: -Acute right tonsillar abscess secondary to Streptococcus pharyngitis -Acute streptococcal pharyngitis -Intubated asthma -Anxiety depression otherwise specified Disposition: Home Patient Condition at Discharge: Good Plan - Discharge Summary Discharge Rx Participant: No New Discharge Prescriptions: New Clindamycin HCl [Cleocin] 300 mg PO Q6HR #28 cap Naproxen [Naprosyn] 250 mg PO TID #21 tab predniSONE 0 mg PO DIRECTED #10 tab Continue Albuterol Inhaler [Ventolin Hfa Inhaler] 2 puff INHALATION RT-Q6H PRN PRN Reason: Shortness Of Breath Or Wheezing Acetaminophen Tab [Tylenol] 500 - 1,000 mg PO Q6H PRN PRN Reason: Fever And/ Or Pain Citalopram Hydrobromide [CeleXA] 20 mg PO HS valACYclovir HCL [Valtrex] 500 mg PO DAILY PRN PRN Reason: Cold Sores Discontinued Cephalexin [Keflex] 500 mg PO TID Ibuprofen [Motrin] 600 mg PO Q8H PRN PRN Reason: Pain Discharge Medication List Albuterol Inhaler [Ventolin Hfa Inhaler] 2 puff INHALATION RT-Q6H PRN 08/13/13 [History] Acetaminophen Tab [Tylenol] 500 - 1,000 mg PO Q6H PRN 06/05/19 [History] Citalopram Hydrobromide [CeleXA] 20 mg PO HS 06/05/19 [History] valACYclovir HCL [Valtrex] 500 mg PO DAILY PRN 06/05/19 [History] Clindamycin HCl [Cleocin] 300 mg PO Q6HR #28 cap 06/07/19 [Rx] Naproxen [Naprosyn] 250 mg PO TID #21 tab 06/07/19 [Rx] predniSONE 0 mg PO DIRECTED #10 tab 06/07/19 [Rx] Follow up Appointment(s)/Referral(s): Kevin Odell DO [Primary Care Provider] - 1 Week Dmitri Contreras MD [STAFF PHYSICIAN] - 1 Week Patient Instructions/Handouts: Abscess (ED)
== END 2019-06-11 06:39 | disposition home or self-care (01) ==
LOC: EC 13:47 → 6PED 15:50 → INTOOBSV 15:50 → 6PED 17:20 → UNDODISIN 06-07 13:05
PROVIDERS: ADMIT Hospitalist; ATTEND Hospitalist
DX: J02.0 Streptococcal pharyngitis (principal); J45.909 Unspecified asthma, uncomplicated; F32.9 Major depressive disorder, single episode, unspecified; E86.0 Dehydration; L30.9 Dermatitis, unspecified; Z82.49 Family history of ischemic heart disease and other diseases of the circulatory system; Z87.891 Personal history of nicotine dependence; F41.8 Other specified anxiety disorders; Z79.899 Other long term (current) drug therapy; Z91.018 Allergy to other foods; Z88.0 Allergy status to penicillin
CPT/HCPCS: 96361 ×3; 96365 ×2; 96366 ×2; 96375 ×3; 96376 ×3; 99284; 42700; 36415; 80053; 83605 ×2; 85025 ×2; 85027; 87040; G0378 ×7; J2270; J1100 ×4; J2405 ×2; J2001; J1885; J1170; 99285

== ENCOUNTER → 2019-10-15 | Outpatient (CLI) | payer BC ==
[2019-10-16 11:54] LABS: Lettuce IgE Class CLASS 0
[2019-10-16 11:55] LABS: Crab IgE <0.10 kU/L (<0.10); Crab IgE Class CLASS 0; Salmon IgE <0.10 kU/L (<0.10); Salmon IgE Class CLASS 0
[2019-10-16 11:56] LABS: Onion IgE <0.10 kU/L (<0.10); Onion IgE Class CLASS 0
[2019-10-16 11:57] LABS: Apple IgE Class CLASS 2
[2019-10-16 11:58] LABS: Gluten IgE Class CLASS 0; Lobster IgE <0.10 kU/L (<0.10); Lobster IgE Class CLASS 0
[2019-10-16 11:59] LABS: Celery IgE 0.99 kU/L (<0.10); Celery IgE Class CLASS 2; Cow's Milk IgE Class CLASS 0; Egg White IgE <0.10 kU/L (<0.10); Latex IgE Class CLASS 0; Peanut IgE 0.29 kU/L (<0.10); Potato IgE 0.16 kU/L (<0.10); Potato IgE Class CLASS 0/1; Soybean IgE <0.10 kU/L (<0.10)
[2019-10-16 12:00] LABS: Avocado Class CLASS 0/1; Banana IgE Class CLASS 0/1; Hazelnut IgE Class CLASS 3; Kiwi IgE <0.10 kU/L (<0.10); Kiwi IgE Class CLASS 0
== END | disposition home or self-care (01) ==
LOC: LABWHC1 12:26
PROVIDERS: ATTEND Otolaryngology
DX: J30.89 Other allergic rhinitis (principal)
CPT/HCPCS: 36415; 86003

== ENCOUNTER 2021-01-25 12:02 | Observation (INO) | payer BC ==
[2021-01-25] MEDS ORDERED: ALBUTEROL NEBULIZED 2.5 MG/3 ML INHALATION STA (13:23)
[2021-01-25] MEDS ORDERED: methylPREDNISolone SOD SUCCI 125 MG/2 ML VIAL IV STA (13:23)
[2021-01-25] MEDS ORDERED: IPRATROPIUM 0.5 MG/2.5 ML NEBU INHALATION STA (13:23)
[2021-01-25] MEDS ORDERED: SODIUM CHLORIDE 0.9% 1,000 ML IV STA (13:23)
--- NOTE | 2021-01-25 13:25 | ED ---
General Adult HPI - General Chief complaint: Shortness of Breath Stated complaint: SOB Time Seen by Provider: 01/25/21 13:25 Source: patient, RN notes reviewed, old records reviewed Mode of arrival: ambulatory Limitations: no limitations - History of Present Illness Initial comments: This is a 30-year-old female with a past medical history significant for asthma. Patient states the last 2 days her breathing is gotten to be worse. Patient states she's taken breathing treatments and it is not helping. Patient states she's had no fever but a little bit of chills. Patient states she did get a COVID vaccine. Patient denies any chest pain or palpitations. Patient denies abdominal pain patient denies nausea vomiting diarrhea. Patient states in the past she has had to be admitted for her asthma. - Related Data Home Medications Medication Instructions Recorded Confirmed Albuterol Inhaler (Mhu) [Ventolin 2 puff INHALATION RT-Q6H PRN 08/13/06/05/19 Hfa Inhaler (Mhu)] Acetaminophen Tab [Tylenol] 500 - 1,000 mg PO Q6H PRN 06/05/19 06/05/19 Citalopram Hydrobromide [CeleXA] 20 mg PO HS 06/05/19 06/05/19 valACYclovir HCL [Valtrex] 500 mg PO DAILY PRN 06/05/19 06/05/19 Previous Rx's Medication Instructions Recorded Naproxen [Naprosyn] 250 mg PO TID #21 tab 06/07/19 clindamycin HCL [Cleocin] 300 mg PO Q6HR #28 cap 06/07/19 predniSONE 0 mg PO DIRECTED #10 tab 06/07/19 Allergies Allergy/AdvReac Type Severity Reaction Status Date / Time Penicillins Allergy Unknown Verified 01/25/21 13:00 Childhood sesame seed Allergy Anaphylaxis Verified 01/25/21 13:00 Review of Systems ROS Statement: Those systems with pertinent positive or pertinent negative responses have been documented in the HPI. ROS Other: All systems not noted in ROS Statement are negative. Past Medical History Past Medical History: Asthma, Skin Disorder Additional Past Medical History / Comment(s): eczema History of Any Multi-Drug Resistant Organisms: None Reported Past Surgical History: No Surgical Hx Reported Additional Past Surgical History / Comment(s): wisdom teeth Past Anesthesia/Blood Transfusion Reactions: No Reported Reaction Past Psychological History: Anxiety, Depression Smoking Status: Current every day smoker Past Alcohol Use History: Occasional Past Drug Use History: None Reported - Past Family History Father Family Medical History: Hypertension Additional Family Medical History / Comment(s): ETOH Mother Additional Family Medical History / Comment(s): mental disorder undiagnosed, ETOH General Exam - General Exam Comments Initial Comments: GENERAL: Patient is well-developed and well-nourished. Patient is nontoxic and well- hydrated and is in mild distress. ENT: Neck is soft and supple. No significant lymphadenopathy is noted. Oropharynx is clear. Moist mucous membranes. Neck has full range of motion without eliciting any pain. EYES: The sclera were anicteric and conjunctiva were pink and moist. Extraocular movements were intact and pupils were equal round and reactive to light. Eyel ids were unremarkable. PULMONARY: Diffuse expiratory wheezing CARDIOVASCULAR: Patient is a regular rate and rhythm but she is tachycardic at about 105 beats a minute ABDOMEN: Soft and nontender with normal bowel sounds. SKIN: Skin is clear with no lesions or rashes and otherwise unremarkable. NEUROLOGIC: Patient is alert and oriented x3. Cranial nerves II through XII are grossly intact. Motor and sensory are also intact. Normal speech, volume and content. Symmetrical smile. MUSCULOSKELETAL: Normal extremities with adequate strength and full range of motion. No lower extremity swelling or edema. No calf tenderness. LYMPHATICS: No significant lymphadenopathy is noted PSYCHIATRIC: Normal psychiatric evaluation. Limitations: no limitations Course Vital Signs 01/25/21 01/25/21 01/25/21 12:56 13:38 13:59 Temperature 98.3 F Pulse Rate 104 H 84 88 Respiratory 18 Rate Blood Pressure 139/91 O2 Sat by Pulse 95 Oximetry Medical Decision Making - Medical Decision Making Patient received 3 breathing treatments and steroids in the emergency department. I went back and reevaluated the patient she continued to wheeze diffusely and she did not feel comfortable going home at this point time. Patient states she often has slight improvement after breathing treatment but after a while the symptoms get worse to the point where she is having extremely hard time breathing. Chest x-ray shows no acute abnormality. I spoke with Dr. Leyva he agreed to admit the patient admitted the patient wrote admitting orders. - Lab Data Result diagrams: 01/25/21 14:11 01/25/21 14:11 Lab Results 01/25/21 01/25/21 Range/Units 14:11 14:11 WBC 10.7 H (3.8-10.6) k/uL RBC 4.89 (3.80-5.40) m/uL Hgb 14.5 (11.4-16.0) gm/dL Hct 44.3 (34.0-46.0) % MCV 90.7 (80.0-100.0) fL MCH 29.6 (25.0-35.0) pg MCHC 32.6 (31.0-37.0) g/dL RDW 11.9 (11.5-15.5) % Plt Count 342 (150-450) k/uL MPV 7.2 Neutrophils % 61 % Lymphocytes % 20 % Monocytes % 6 % Eosinophils % 10 % Basophils % 1 % Neutrophils # 6.5 (1.3-7.7) k/uL Lymphocytes # 2.2 (1.0-4.8) k/uL Monocytes # 0.7 (0-1.0) k/uL Eosinophils # 1.0 H (0-0.7) k/uL Basophils # 0.1 (0-0.2) k/uL Sodium 138 (137-145) mmol/L Potassium 3.4 L (3.5-5.1) mmol/L Chloride 104 (98-107) mmol/L Carbon Dioxide 21 L (22-30) mmol/L Anion Gap 13 mmol/L BUN 8 (7-17) mg/dL Creatinine 0.49 L (0.52-1.04) mg/dL Est GFR (CKD-EPI)AfAm >90 (>60 ml/min/1.73 sqM) Est GFR (CKD-EPI)NonAf >90 (>60 ml/min/1.73 sqM) Glucose 89 (74-99) mg/dL Calcium 10.0 (8.4-10.2) mg/dL Magnesium 1.9 (1.6-2.3) mg/dL Total Bilirubin 0.6 (0.2-1.3) mg/dL AST 26 (14-36) U/L ALT 20 (4-34) U/L Alkaline Phosphatase 68 (38-126) U/L Total Protein 7.7 (6.3-8.2) g/dL Albumin 4.7 (3.5-5.0) g/dL Critical Care Time Critical Care Time: Yes Total Critical Care Time: 35 Disposition Clinical Impression: Asthma with status asthmaticus Disposition: ADMITTED IP TO THIS HOSP Referrals: Kevin Odell DO [Primary Care Provider] - 1-2 days Time of Disposition: 15:33
[2021-01-25 14:22] LABS: Basophils # (A) 0.1 k/uL (0-0.2); Basophils % (A) 1 %; Eosinophils % (A) 10 %; HCT 44.3 % (34.0-46.0); HGB 14.5 gm/dL (11.4-16.0); Lymphocytes # (A) 2.2 k/uL (1.0-4.8); Lymphocytes % (A) 20 %; MCH 29.6 pg (25.0-35.0); MCHC 32.6 g/dL (31.0-37.0); MCV 90.7 fL (80.0-100.0); Mean Platelet Volume 7.2; Monocytes # (A) 0.7 k/uL (0-1.0); Monocytes % (A) 6 %; Neutrophils # (A) 6.5 k/uL (1.3-7.7); Neutrophils % (A) 61 %; Platelet Count 342 k/uL (150-450); RBC 4.89 m/uL (3.80-5.40); RDW 11.9 % (11.5-15.5); WBC 10.7 k/uL (3.8-10.6)
--- NOTE | 2021-01-25 14:41 | XR ---
EXAMINATION TYPE: XR chest 2V DATE OF EXAM: 01/25/2021 COMPARISON: NONE TECHNIQUE: PA and lateral views submitted. HISTORY: Difficulty breathing FINDINGS: The lungs are clear and there is no pneumothorax, pleural effusion, or focal pneumonia. Mild hyperi nflation. Heart size normal. IMPRESSION: 1. No acute process.
[2021-01-25 14:44] LABS: ALT 20 U/L (4-34); AST 26 U/L (14-36); African American GFR (CKD) >90 (>60 ml/min/1.73 sqM); Albumin 4.7 g/dL (3.5-5.0); Alkaline Phosphatase 68 U/L (38-126); Anion Gap 13 mmol/L; Blood Urea Nitrogen 8 mg/dL (7-17); Carbon Dioxide 21 mmol/L (22-30); Chloride 104 mmol/L (98-107); Glucose 89 mg/dL (74-99); Magnesium 1.9 mg/dL (1.6-2.3); Non-African American GFR(CKD) >90 (>60 ml/min/1.73 sqM); Potassium 3.4 mmol/L (3.5-5.1); Sodium 138 mmol/L (137-145); Total Bilirubin 0.6 mg/dL (0.2-1.3); Total Protein 7.7 g/dL (6.3-8.2)
[2021-01-25] MEDS: IPRATROPIUM-ALBUTEROL 3 ML NEB INHALATION PRN ×2 (18:31→23:38)
[2021-01-25] MEDS: methylPREDNISolone SOD SUCCI 125 MG/2 ML VIAL IV SCH ×2 (18:34→23:14)
[2021-01-25] MEDS ORDERED: ALBUTEROL HFA INHALER INHALATION PRN (19:21)
[2021-01-25] MEDS: SERTRALINE 100 MG TAB PO SCH (20:32)
[2021-01-25] MEDS: CHOLECALCIFEROL 25 MCG (1000 IU) TABLET PO SCH (20:33)
[2021-01-25] MEDS: LORATADINE 10 MG TAB PO SCH (20:33)
[2021-01-25] MEDS: NON FORMULARY DRUG (Phentermine Hcl [Adipex-P] 37.5 MG Tablet) PO SCH (20:41)
[2021-01-25] MEDS: SODIUM CHLORIDE 0.9% 1,000 ML IV SCH (21:19)
--- NOTE | 2021-01-25 23:27 | P.HPIM ---
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 Patient is also having cough with whitish to clear sputum production. Presents to ER due to worsening symptoms despite using nebulizer treatments at home. Otherwise patient denied any fever or chills. No complaints of chest pain. Denied any nausea vomiting or abdominal pain or diarrhea. Patient is vaccinated for COVID-19. Chest x-ray showed no acute process Laboratory data showed WBC 10.7 hemoglobin 14.5 and platelets 342 and eosinophils 1.0 Sodium 138 potassium 3.4 chloride 104 bicarb 21 BUN 18 creatinine 0.49 Lactic acid 5.4 on admission Magnesium 1.9 Liver enzymes are not elevated and COVID-19 PCR not detected. Review of Systems Constitutional: Patient denies any fever or chills . No generalized weakness or weight loss. Abdomen: Patient denied nausea vomiting and diarrhea and abdominal pain. Cardiovascular: Patient denies any chest pain no palpitations. Respiratory: Patient does have cough with whitish to clear sputum production and shortness of breath. Neurologic: Patient denied any numbness or tingling headache. Musculoskeletal: Patient denies any complaints of joint swelling or deformity. Skin: Negative Psychiatric: Negative Endocrine: No heat or cold intolerance. No recent weight gain. Genitourinary: No dysuria or hematuria. All other 14 point ROS negative except the above Past Medical History Past Medical History: Asthma, Skin Disorder Additional Past Medical History / Comment(s): eczema History of Any Multi-Drug Resistant Organisms: None Reported Past Surgical History: No Surgical Hx Reported Additional Past Surgical History / Comment(s): wisdom teeth Past Anesthesia/Blood Transfusion Reactions: No Reported Reaction Past Psychological History: Anxiety, Depression Additional Psychological History / Comment(s): see therapist and is on medications. Smoking Status: Current every day smoker, Vaper Past Alcohol Use History: Occasional Past Drug Use History: None Reported Additional Drug Use History / Comment(s): PT STARTED SMOKING NICOTINE AT AGE 15 Y/O A - Past Family History Father Family Medical History: Hypertension Additional Family Medical History / Comment(s): ETOH Mother Family Medical History: Diabetes Mellitus Additional Family Medical History / Comment(s): mental disorder undiagnosed, ETOH Medications and Allergies Home Medications Medication Instructions Recorded Confirmed Type Albuterol Sulfate [Ventolin HFA] 2 puff INHALATION RT-QID PRN 01/25/21 01/25/21 History Cholecalciferol [Vitamin D3 (25 25 mcg PO HS 01/25/21 01/25/21 History Mcg = 1000 Iu)] Fexofenadine HCl [Sadia Allergy] 180 mg PO HS 01/25/21 01/25/21 History Phentermine HCl [Adipex-P] 37.5 mg PO HS 01/25/21 01/25/21 History Sertraline HCl [Zoloft] 100 mg PO HS 01/25/21 01/25/21 History Allergies Allergy/AdvReac Type Severity Reaction Status Date / Time Penicillins Allergy Unknown Verified 01/25/21 15:51 Childhood sesame seed Allergy Anaphylaxis Verified 01/25/21 15:51 Physical Exam Vitals: Vital Signs Temp Pulse Pulse Resp BP BP Pulse Ox 01/25/21 19:14 94 L 01/25/21 18:36 98 24 01/25/21 18:31 89 01/25/21 18:15 98.1 F 98 24 138/85 89 L 01/25/21 17:00 93 20 128/73 99 01/25/21 16:40 101 H 20 137/76 99 01/25/21 16:35 98.3 F 101 H 20 137/76 99 01/25/21 15:34 98.1 F 98 138/85 89 L 01/25/21 15:00 99 20 125/74 99 01/25/21 13:59 88 01/25/21 13:38 84 01/25/21 12:56 98.3 F 104 H 18 139/91 95 Intake and Output 01/25/21 01/25/21 01/25/21 06:59 14:59 22:59 Intake Total 120 Balance 120 Intake: Oral 120 Other: Voiding Method Toilet Weight 86.183 kg 91.5 kg PHYSICAL EXAMINATION: Patient is lying in the bed comfortably, mild acute distress, awake alert and oriented.. HEENT: Normocephalic. Neck is supple. Pupils reactive. Nostrils clear. Oral cavity is moist. Neck reveals no JVD, carotid bruits, or thyromegaly. CHEST EXAMINATION: Trachea is central. Symmetrical expansion. Bilateral diffuse wheezing and rhonchi. Nonlabored breathing.. CARDIAC: Normal S1, S2 with no gallops. No murmurs ABDOMEN: Soft. Bowel sounds normal. No organomegaly. No abdominal bruits. Extremities: reveal no edema. No clubbing or cyanosis Neurologically awake, alert, oriented x3 with well-coordinated movements. No f ocal deficits noted Skin: No rash or skin lesions. Psychiatric: Cooperative. Nonsuicidal, anxious Musculoskeletal: No joint swelling or deformity. Normal range of motion. Results CBC & Chem 7: 01/26/21 06:09 01/26/21 06:09 Labs: Abnormal Lab Results - Last 24 Hours (Table) 01/25/21 01/25/21 01/25/21 Range/Units 14:11 14:11 20:16 WBC 10.7 H (3.8-10.6) k/uL Eosinophils # 1.0 H (0-0.7) k/uL Potassium 3.4 L (3.5-5.1) mmol/L Carbon Dioxide 21 L (22-30) mmol/L Creatinine 0.49 L (0.52-1.04) mg/dL Plasma Lactic Acid Ajit 5.4 H* (0.7-2.0) mmol/L Thrombosis Risk Factor Assmnt - DVT/VTE Prophylaxis DVT/VTE Prophylaxis: Pharmacologic Prophylaxis ordered - Choose All That Apply Any of the Below Risk Factors Present?: No Other Risk Factors: No Other congenital or acquired thrombophilia - If yes, enter type in comment: No Thrombosis Risk Factor Assessment Level: Very Low Risk Assessment and Plan Assessment: Acute asthma exacerbation/status asthmaticus. Mild persistent asthma with allergic component. Hypokalemia Lactic acidosis 5.4. Due to hypoperfusion Currently everyday smoker/vapor Anxiety/depression Skin eczema DVT prophylaxis with heparin subcu Plan: Patient will be continued on IV Solu-Medrol 60 mg every 6 hourly and duo nebs. Current with IV hydration with normal saline and follow-up lactic acid level. Continue with home medications for depression and follow-up closely. Time with Patient: Greater than 30
[2021-01-26] MEDS: IPRATROPIUM-ALBUTEROL 3 ML NEB INHALATION PRN ×6 (02:47→21:38)
[2021-01-26] MEDS: methylPREDNISolone SOD SUCCI 125 MG/2 ML VIAL IV SCH ×4 (05:45→23:03)
[2021-01-26 06:39] LABS: Basophils % (A) 0 %; Eosinophils % (A) 0 %; HCT 42.4 % (34.0-46.0); HGB 13.4 gm/dL (11.4-16.0); Lymphocytes # (A) 1.2 k/uL (1.0-4.8); Lymphocytes % (A) 10 %; MCHC 31.5 g/dL (31.0-37.0); MCV 95.1 fL (80.0-100.0); Mean Platelet Volume 7.3; Monocytes # (A) 0.1 k/uL (0-1.0); Monocytes % (A) 1 %; Neutrophils # (A) 10.8 k/uL (1.3-7.7); Neutrophils % (A) 89 %; Platelet Count 357 k/uL (150-450); RBC 4.46 m/uL (3.80-5.40); RDW 11.9 % (11.5-15.5); WBC 12.1 k/uL (3.8-10.6)
[2021-01-26] MEDS: SODIUM CHLORIDE 0.9% 1,000 ML IV SCH ×3 (07:13→23:04)
[2021-01-26 07:14] LABS: African American GFR (CKD) >90 (>60 ml/min/1.73 sqM); Anion Gap 14 mmol/L; Blood Urea Nitrogen 4 mg/dL (7-17); Calcium 9.9 mg/dL (8.4-10.2); Carbon Dioxide 16 mmol/L (22-30); Chloride 109 mmol/L (98-107); Glucose 159 mg/dL (74-99); Non-African American GFR(CKD) >90 (>60 ml/min/1.73 sqM); Potassium 4.1 mmol/L (3.5-5.1); Sodium 139 mmol/L (137-145)
[2021-01-26] MEDS: HEPARIN SODIUM,PORCINE/PF 5,000 UNIT/0.5 ML SYRINGE SQ SCH ×2 (09:39→20:00)
--- NOTE | 2021-01-26 12:51 | P.CNPUL ---
History of Present Illness Consult date: 01/26/21 Requesting physician: Princess Leyva Reason for consult: dyspnea, cough, asthma, hypoxemia Chief complaint: SOB. History of present illness: Pulmonary consult dated 01/26/2021. 30-year-old female with history of long-standing asthma. She appears to have either mild intermittent or mild persistent asthma. She uses a rescue inhaler as needed, and she does have a nebulizer machine at home. The patient also suffers from anxiety and depression. Anyway, she presents to the emergency department on January 25, complaining of shortness of breath, chest tightness, wheezing, and cough. She is not producing any phlegm. No fever or chills. She denies any chest pain. She also denies any nausea, vomiting, diarrhea, or abdominal pain. The patient states that over the many years, she's been admitted 3 times in the hospital for her asthma. She is not sure what triggered it. She has never seen a lung doctor for her asthma. Her only other major medical problem other than asthma, and anxiety and depression, is eczema. Forcefully, she does smoke on an everyday basis. White count 12.1, hemoglobin hematocrit and platelet count all normal. Sodium 139, potassium 4.1, chlorides 109, CO2 16, anion gap 14, BUN 4, and creatinine 0.39. Lactic acid was 5.4, repeat was 5.3, and repeat after that was 4.4. Clinically she looks very stable. Chest x-ray shows nothing acute. Current medications include Solu- Medrol, duo nebs, an albuterol inhaler. We will add some Symbicort to her regim en. Review of Systems REVIEW OF SYSTEMS: CONSTITUTIONAL: [Negative.] NEUROLOGIC: [ Negative.] HEENT: [ Negative.] CARDIAC: [Negative.] PULMONARY: Shortness of breath, chest tightness, cough, wheezing, without phlegm production. GI: [Negative.] : [Negative.] RHEUMATOLOGIC: [ Negative.] IMMUNOLOGIC: [ Negative.] ENDOCRINE: [Negative. ] DERMATOLOGIC: [Negative.] Past Medical History Past Medical History: Asthma, Skin Disorder Additional Past Medical History / Comment(s): eczema History of Any Multi-Drug Resistant Organisms: None Reported Past Surgical History: No Surgical Hx Reported Additional Past Surgical History / Comment(s): wisdom teeth Past Anesthesia/Blood Transfusion Reactions: No Reported Reaction Past Psychological History: Anxiety, Depression Additional Psychological History / Comment(s): see therapist and is on medications. Smoking Status: Current every day smoker, Vaper Past Alcohol Use History: Occasional Past Drug Use History: None Reported Additional Drug Use History / Comment(s): PT STARTED SMOKING NICOTINE AT AGE 15 Y/O A - Past Family History Father Family Medical History: Hypertension Additional Family Medical History / Comment(s): ETOH Mother Family Medical History: Diabetes Mellitus Additional Family Medical History / Comment(s): mental disorder undiagnosed, ETOH Medications and Allergies Home Medications Medication Instructions Recorded Confirmed Type Albuterol Sulfate [Ventolin HFA] 2 puff INHALATION RT-QID PRN 01/25/21 01/25/21 History Cholecalciferol [Vitamin D3 (25 25 mcg PO HS 01/25/21 01/25/21 History Mcg = 1000 Iu)] Fexofenadine HCl [Sadia Allergy] 180 mg PO HS 01/25/21 01/25/21 History Phentermine HCl [Adipex-P] 37.5 mg PO HS 01/25/21 01/25/21 History Sertraline HCl [Zoloft] 100 mg PO HS 01/25/21 01/25/21 History Allergies Allergy/AdvReac Type Severity Reaction Status Date / Time Penicillins Allergy Unknown Verified 01/25/21 15:51 Childhood sesame seed Allergy Anaphylaxis Verified 01/25/21 15:51 Physical Exam Osteopathic Statement: *. No significant issues noted on an osteopathic structural exam other than those noted in the History and Physical/Consult. Vitals: Vital Signs Temp Pulse Pulse Resp BP BP Pulse Ox 01/26/21 12:04 115 H 01/26/21 11:53 120 H 01/26/21 09:57 106 H 24 96 01/26/21 08:57 99 01/26/21 08:46 99 95 01/26/21 08:44 94 20 99 01/26/21 08:10 102 H 20 01/26/21 07:36 97.8 F 102 H 20 126/79 90 L 01/26/21 06:05 72 01/26/21 05:52 80 01/26/21 02:59 72 01/26/21 02:47 76 01/26/21 01:48 97.7 F 98 20 114/68 92 L 01/25/21 23:48 100 01/25/21 23:39 88 01/25/21 19:14 94 L 01/25/21 18:36 98 24 01/25/21 18:31 89 01/25/21 18:15 98.1 F 98 24 138/85 89 L 01/25/21 17:00 93 20 128/73 99 01/25/21 16:40 101 H 20 137/76 99 01/25/21 16:35 98.3 F 101 H 20 137/76 99 01/25/21 15:34 98.1 F 98 138/85 89 L 01/25/21 15:00 99 20 125/74 99 01/25/21 13:59 88 01/25/21 13:38 84 01/25/21 12:56 98.3 F 104 H 18 139/91 95 Intake and Output 01/25/21 01/26/21 01/26/21 22:59 06:59 14:59 Intake Total 120 1000 Balance 120 1000 Intake: Intake, IV Titration 1000 Amount Sodium Chloride 0.9% 1, 1000 000 ml @ 100 mls/hr IV . Q10H [facility] Rx#:[id number] Oral 120 Other: Voiding Method Toilet # Voids 1 Weight 91.5 kg No acute distress, oriented 3. No audible wheezing, or use of accessory muscles. The patient's on 1 L nasal O2. Saturations are in the mid 90s. HEENT examination is grossly unremarkable. Neck supple. Full range of motion. No adenopathy thyromegaly or neck vein distention. Cardiovascular examination reveals regular rhythm rate. S1-S2 normal. No S3 or S4. No discernible murmur noted. Heart rate is about 110 bpm. Heart sounds are distant. Lungs reveal bilateral expiratory wheezes and expiratory rhonchi. No crackles. There is prolongation on forced maneuver. Adventitious lung sounds are more prominent on forced maneuver.. Abdomen soft bowel sounds are heard. No masses or tenderness. Extremities are intact. No cyanosis clubbing or edema. Skin is without rash or lesion. Neurologic examination is brief but nonfocal. Results - Laboratory Findings CBC and BMP: 01/26/21 06:09 01/26/21 06:09 Abnormal lab findings: Abnormal Labs 01/25/21 01/25/21 01/25/21 14:11 14:11 20:16 WBC 10.7 H Neutrophils # Eosinophils # 1.0 H Potassium 3.4 L Chloride Carbon Dioxide 21 L BUN Creatinine 0.49 L Glucose Plasma Lactic Acid Ajit 5.4 H* 01/26/21 01/26/21 01/26/21 06:09 06:09 06:09 WBC 12.1 H Neutrophils # 10.8 H Eosinophils # Potassium Chloride 109 H Carbon Dioxide 16 L BUN 4 L Creatinine 0.39 L Glucose 159 H Plasma Lactic Acid Ajit 5.3 H* 01/26/21 09:56 WBC Neutrophils # Eosinophils # Potassium Chloride Carbon Dioxide BUN Creatinine Glucose Plasma Lactic Acid Ajit 4.4 H* - Diagnostic Findings Chest x-ray: image reviewed Assessment and Plan Assessment: Acute exacerbation of chronic bronchial asthma. Ongoing tobacco use with nicotine addiction. History of anxiety/depression. History of eczema. Plan: Plan dated 01/26/2021. The patient appears to be on resuming good medications. I will add Symbicort 160/4.5, 2 puffs twice a day. Additional recommendations and suggestions are forthcoming. The patient appears to have mild intermittent asthma or mild pers istent asthma. The patient has been admitted 3 times in the hospital over the many years for her asthma. The only thing she uses at home, is a rescue inhaler. Time with Patient: Greater than 30
--- NOTE | 2021-01-26 15:48 | P.PN ---
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 Patient is also having cough with whitish to clear sputum production. Presents to ER due to worsening symptoms despite using nebulizer treatments at home. Otherwise patient denied any fever or chills. No complaints of chest pain. Denied any nausea vomiting or abdominal pain or diarrhea. Patient is vaccinated for COVID-19. Chest x-ray showed no acute process Laboratory data showed WBC 10.7 hemoglobin 14.5 and platelets 342 and eosinophil s 1.0 Sodium 138 potassium 3.4 chloride 104 bicarb 21 BUN 18 creatinine 0.49 Lactic acid 5.4 on admission Magnesium 1.9 Liver enzymes are not elevated and COVID-19 PCR not detected. 01/26/2021 Patient is seen and evaluated in follow-up stating she is breathing slightly better although continues to be on oxygen 2 L via nasal cannula. Patient maintaining oxygen saturation above 90%. Patient does not wear oxygen in the outpatient setting. Patient states she has been using her rescue inhaler along with nebulized treatments and not receiving adequate control of her asthma. Patient will be continued on breathing inhalational treatments along with IV steroids. Patient is having improvement in aeration and continues with inspiratory and expiratory wheezing noted on exam. Patient's lactic acid continues to be elevated although trending down. Pulmonary has been consulted. Review of systems: Constitutional: No reports of fatigue, fever, or chills Cardiovascular: No reports of chest pain or palpitations Respiratory: reports of continued shortness of breath and cough, although states is breathing easier today GI: No reports of nausea, vomiting, or diarrhea : No reports of dysuria or retention Neurovascular: No reports of weakness or numbness All medications have been reviewed Active Medications Albuterol/Ipratropium (Ipratropium-Albuterol 3 Ml Neb) 3 ml INHALATION RT-Q4H PRN PRN Reason: Shortness Of Breath Or Wheezing Last Admin: 01/26/21 11:51 Dose: 3 ml Documented by: Cholecalciferol (Cholecalciferol 25 Mcg (1000 Iu) Tablet) 25 mcg PO HS [facility] Last Admin: 01/25/21 20:33 Dose: 25 mcg Documented by: Heparin Sodium (Porcine) (Heparin Sodium,Porcine/Pf 5,000 Unit/0.5 Ml Syringe) 5,000 unit SQ Q12HR [facility] Last Admin: 01/26/21 09:39 Dose: 5,000 unit Documented by: Sodium Chloride (Saline 0.9%) 1,000 mls @ 100 mls/hr IV .Q10H [facility] Last Admin: 01/26/21 11:52 Dose: 100 mls/hr Documented by: Loratadine (Loratadine 10 Mg Tab) 10 mg PO [facility] Last Admin: 01/25/21 20:33 Dose: 10 mg Documented by: Methylprednisolone Sodium Succinate (Methylprednisolone Sod Succi 125 Mg/2 Ml Vial) 60 mg IV Q6HR [facility] Last Admin: 01/26/21 11:53 Dose: 60 mg Documented by: Non-Formulary Medication (Phentermine Hcl [Adipex-P]) 37.5 mg PO [facility] Last Admin: 01/25/21 20:41 Dose: Not Given Documented by: Sertraline HCl (Sertraline 100 Mg Tab) 100 mg PO [facility] Last Admin: 01/25/21 20:32 Dose: 100 mg Documented by: Physical exam: Patient is sitting up in the bed comfortably, no acute distress, awake alert and oriented.. HEENT: Normocephalic. Neck is supple. Pupils reactive. Nostrils clear. Oral cavity is moist. Neck reveals no JVD, carotid bruits, or thyromegaly. CHEST EXAMINATION: Trachea is central. Symmetrical expansion. Bilateral diffuse wheezing inspiratory and expiratory is improvement in aeration. Nonlabored werner thing.. CARDIAC: Normal S1, S2 with no gallops. No murmurs ABDOMEN: Soft. Bowel sounds normal. No organomegaly. No abdominal bruits. Extremities: reveal no edema. No clubbing or cyanosis Neurologically awake, alert, oriented x3 with well-coordinated movements. No focal deficits noted Skin: No rash or skin lesions. Psychiatric: Cooperative. Nonsuicidal, anxious Musculoskeletal: No joint swelling or deformity. Normal range of motion. Assessment: Acute asthma exacerbation/status asthmaticus. Mild persistent asthma with allergic component. Hypokalemia improved Lactic acidosis 5.4. Due to hypoperfusion, trending down and is currently 3.7 Currently everyday smoker/vapor Anxiety/depression Skin eczema DVT prophylaxis with heparin subcu Full code Plan: Patient will be continued on IV Solu-Medrol 60 mg every 6 hourly and duo nebs. Will add Symbicort and pulmonary following. Current with IV hydration with normal saline and monitor lactic acid level in the morning. Continue with home medications for depression and follow-up closely. Encouraged increase activity as tolerated and weaning FiO2 as well. Patient currently on 2 L via nasal cannula. Discussed extensively about tobacco use and vaping and complete cessation of this. We'll continue to monitor closely with possible discharge in 24-48 hours. Objective - Vital Signs Vital signs: Vital Signs Temp 97.8 F 01/26/21 14:10 Pulse 100 01/26/21 14:10 Resp 20 01/26/21 14:10 BP 127/75 01/26/21 14:10 Pulse Ox 94 L 01/26/21 14:10 Intake & Output 01/25/21 01/26/21 01/26/21 18:59 06:59 18:59 Intake Total 120 1000 Balance 120 1000 Weight 91.5 kg Intake: Intake, IV Titration 1000 Amount Sodium Chloride 0.9% 1, 1000 000 ml @ 100 mls/hr IV . Q10H [facility] Rx#:[id number] Oral 120 Other: Voiding Method Toilet # Voids 1 - Labs CBC & Chem 7: 01/26/21 06:09 01/26/21 06:09 Labs: Abnormal Lab Results - Last 24 Hours (Table) 01/25/21 01/26/21 01/26/21 Range/Units 20:16 06:09 06:09 WBC (3.8-10.6) k/uL Neutrophils # (1.3-7.7) k/uL Chloride 109 H (98-107) mmol/L Carbon Dioxide 16 L (22-30) mmol/L BUN 4 L (7-17) mg/dL Creatinine 0.39 L (0.52-1.04) mg/dL Glucose 159 H (74-99) mg/dL Plasma Lactic Acid Ajit 5.4 H* 5.3 H* (0.7-2.0) mmol/L 01/26/21 01/26/21 01/26/21 Range/Units 06:09 09:56 14:27 WBC 12.1 H (3.8-10.6) k/uL Neutrophils # 10.8 H (1.3-7.7) k/uL Chloride (98-107) mmol/L Carbon Dioxide (22-30) mmol/L BUN (7-17) mg/dL Creatinine (0.52-1.04) mg/dL Glucose (74-99) mg/dL Plasma Lactic Acid Ajit 4.4 H* 3.7 H* (0.7-2.0) mmol/L
[2021-01-26] MEDS: LORATADINE 10 MG TAB PO SCH (20:00)
[2021-01-26] MEDS: CHOLECALCIFEROL 25 MCG (1000 IU) TABLET PO SCH (20:00)
[2021-01-26] MEDS: SERTRALINE 100 MG TAB PO SCH (20:00)
[2021-01-26] MEDS: NON FORMULARY DRUG (Phentermine Hcl [Adipex-P] 37.5 MG Tablet) PO SCH (20:03)
[2021-01-26] MEDS ORDERED: ACETAMINOPHEN TAB 325 MG TAB PO PRN (20:16)
[2021-01-27] MEDS: IPRATROPIUM-ALBUTEROL 3 ML NEB INHALATION PRN ×2 (04:19→12:26)
[2021-01-27] MEDS: methylPREDNISolone SOD SUCCI 125 MG/2 ML VIAL IV SCH ×2 (06:10→11:08)
[2021-01-27] MEDS: HEPARIN SODIUM,PORCINE/PF 5,000 UNIT/0.5 ML SYRINGE SQ SCH (07:55)
[2021-01-27] MEDS: SODIUM CHLORIDE 0.9% 1,000 ML IV SCH (11:11)
--- NOTE | 2021-01-27 12:26 | P.PN ---
Subjective Progress Note Date: 01/27/21 Principal diagnosis: Asthma exacerbation. Pulmonary consult dated 01/26/2021. 30-year-old female with history of long-standing asthma. She appears to have either mild intermittent or mild persistent asthma. She uses a rescue inhaler as needed, and she does have a nebulizer machine at home. The patient also suffers from anxiety and depression. Anyway, she presents to the emergency department on January 25, complaining of shortness of breath, chest tightness, wheezing, and cough. She is not producing any phlegm. No fever or chills. She denies any chest pain. She also denies any nausea, vomiting, diarrhea, or abdominal pain. The patient states that over the many years, she's been admitted 3 times in the hospital for her asthma. She is not sure what triggered it. She has never seen a lung doctor for her asthma. Her only other major medical problem other than asthma, and anxiety and depression, is eczema. Forcefully, she does smoke on an everyday basis. White count 12.1, hemoglobin hematocrit and platelet count all normal. Sodium 139, potassium 4.1, chlorides 109, CO2 16, anion gap 14, BUN 4, and creatinine 0.39. Lactic acid was 5.4, repeat was 5.3, and repeat after that was 4.4. Clinically she looks very stable. Chest x-ray shows nothing acute. Current medications include Solu- Medrol, duo nebs, an albuterol inhaler. We will add some Symbicort to her regimen. Progress note dated 01/27/2021. 30-year-old female, seen yesterday in consultation, for asthma exacerbation. She has a history of long-standing mild intermittent or mild persistent asthma. Medication she uses at home is a rescue inhaler and a nebulizer machine with albuterol sulfate. She's never seen a lung doctor. She continues to use a vaping device. Today, she is on room air. She's getting saline at 100 mL an hour. They may be considering possible discharge today. She still has chest tightness, wheezing and cough, but she is improved. She denies any chest pain o r chest discomfort. No new labs today other than a lactic acid which is in the normal range, at 1.6. Objective - Vital Signs Vital signs: Vital Signs Temp 97.7 F 01/27/21 07:51 Pulse 128 H 01/27/21 12:18 Resp 16 01/27/21 12:18 BP 120/79 01/27/21 07:51 Pulse Ox 95 01/27/21 12:18 Intake & Output 01/26/21 01/27/21 01/27/21 18:59 06:59 18:59 Intake Total 500 500 Balance 500 500 Intake: Oral 500 500 Other: Voiding Method Toilet # Voids 4 2 - Exam No acute distress, oriented 3. No audible wheezing, or use of accessory muscles. The patient's on room air. HEENT examination is grossly unremarkable. Neck supple. Full range of motion. No adenopathy thyromegaly or neck vein distention. Cardiovascular examination reveals regular rhythm rate. S1-S2 normal. No S3 or S4. No discernible murmur noted. Heart rate is about 76 bpm. Heart sounds are distant. Lungs reveal bilateral expiratory wheezes and expiratory rhonchi. No crackles. There is prolongation on forced maneuver. Adventitious lung sounds are more prominent on forced maneuver. Breath sounds are improved. Room air saturation 95%. Abdomen soft bowel sounds are heard. No masses or tenderness. Extremities are intact. No cyanosis clubbing or edema. Skin is without rash or lesion. Neurologic examination is brief but nonfocal. - Labs CBC & Chem 7: 01/26/21 06:09 01/26/21 06:09 Labs: Abnormal Lab Results - Last 24 Hours (Table) 01/26/21 Range/Units 14:27 Plasma Lactic Acid Ajit 3.7 H* (0.7-2.0) mmol/L Microbiology - Last 24 Hours (Table) 01/25/21 20:16 Blood Culture - Preliminary Blood No Growth after 24 hours Assessment and Plan Assessment: Acute exacerbation of chronic bronchial asthma. Ongoing tobacco use with nicotine addiction. History of anxiety/depression. History of eczema. Plan: Plan dated 01/26/2021. The patient appears to be on resuming good medications. I will add Symbicort 160/4.5, 2 puffs twice a day. Additional recommendations and suggestions are forthcoming. The patient appears to have mild intermittent asthma or mild persistent asthma. The patient has been admitted 3 times in the hospital over the many years for her asthma. The only thing she uses at home, is a rescue inhaler. Plan dated 01/27/2021. The patient's doing much better. Her lactic acid level is normal. She's on room air, saturations are 95%. The patient could be considered for possible discharge. I'll leave that up to the primary service. She should be discharged on a prednisone burst and taper, 40 mg a day for 4 days, 30 mg a day for 4 days, 20 mg a day for 4 days, and then 10 mg day for 4 days. The patient should continue to use her rescue medication as needed. We did discuss the benefits of maintenance therapy such as Singulair, and a combination long-acting beta agonist/inhaled corticosteroid. She will discuss with her physician. Time with Patient: Less than 30
[2021-01-27 14:18] VITALS: BP 123/77; PULSE 82; RESP 20; TEMP 98.1
--- NOTE | 2021-02-02 09:20 | P.DS ---
Providers Date of admission: 01/25/21 15:34 Expected date of discharge: 01/27/21 Attending physician: Princess Leyva Consults: 01/25/21 19:22 Consult Physician Urgent Consulting Provider: Jakob Shaw Consult Reason/Comments: asthma Do you want consulting provider notified?: Yes Primary care physician: Kevin Odell [facility] Course: Final diagnosis Acute asthma exacerbation/status asthmaticus. Mild persistent asthma with allergic component. Hypokalemia improved Lactic acidosis 5.4. Due to hypoperfusion Currently everyday smoker/vapor Anxiety/depression Skin eczema DVT prophylaxis with heparin subcu Full code Discharge disposition Patient is being discharged in a stable condition with guarded prognosis to home. Patient will follow-up with Dr. Odell in the outpatient setting upon discharge. Patient is to also follow-up with pulmonary in the outpatient setting for further testing. Patient will continue on a prednisone taper upon discharge and also breathing inhalational treatments. Total time taken is greater than 35 minutes. Hospital course Patient is a 30-year-old female with a known history of asthma, allergies and is on follow-up with insurance law specialist, eczema, everyday smoker/vapor and anxiety/depression presents to ER with complaints of worsening shortness of breath for the past 1 week. Patient is also having cough with whitish to clear sputum production. Presents to ER due to worsening symptoms despite using nebulizer treatments at home. Otherwise patient denied any fever or chills. No complaints of chest pain. Denied any nausea vomiting or abdominal pain or diarrhea. Patient is vaccinated for COVID-19. Chest x-ray showed no acute process Laboratory data showed WBC 10.7 hemoglobin 14.5 and platelets 342 and eosinop hils 1.0 Sodium 138 potassium 3.4 chloride 104 bicarb 21 BUN 18 creatinine 0.49 Lactic acid 5.4 on admission Magnesium 1.9 Liver enzymes are not elevated and COVID-19 PCR not detected. 01/26/2021 Patient is seen and evaluated in follow-up stating she is breathing slightly better although continues to be on oxygen 2 L via nasal cannula. Patient maintaining oxygen saturation above 90%. Patient does not wear oxygen in the outpatient setting. Patient states she has been using her rescue inhaler along with nebulized treatments and not receiving adequate control of her asthma. Patient will be continued on breathing inhalational treatments along with IV steroids. Patient is having improvement in aeration and continues with inspiratory and expiratory wheezing noted on exam. Patient's lactic acid continues to be elevated although trending down. Pulmonary has been consulted. 01/27/2021 Patient is seen in follow-up this morning breathing easier and off oxygen. Discussed with the patient in detail about avoiding any tobacco use or exposure and avoiding vaping. Patient will continue on a prednisone taper upon discharge and states she has a nebulizer at home and will provide breathing inhalational treatments and recommend follow-up with pulmonary any outpatient setting for testing and management of asthma. Currently no reports of chest pain, shortness of breath, or palpitations. Patient is afebrile. No reports of nausea or vomiting and patient is tolerating diet. Patient will be discharged home today. Patient is sitting at the side of the bed comfortably, no acute distress, awake alert and oriented. HEENT: Normocephalic. Neck is supple. Pupils reactive. Nostrils clear. Oral cavity is moist. Neck reveals no JVD, carotid bruits, or thyromegaly. CHEST EXAMINATION: Trachea is central. Symmetrical expansion. Improvement in bilateral air entry with some minimal wheezing noted on expiration CARDIAC: Normal S1, S2 with no gallops. No murmurs ABDOMEN: Soft. Bowel sounds normal. No organomegaly. No abdominal bruits. Extremities: reveal no edema. No clubbing or cyanosis Neurologically awake, alert, oriented x3 with well-coordinated movements. No focal deficits noted Skin: No rash or skin lesions. Psychiatric: Cooperative. Non-suicidal Musculoskeletal: No joint swelling or deformity. Normal range of motion. Please refer to medication reconciliation sheet for a list of medications. Patient Condition at Discharge: Stable Plan - Discharge Summary Discharge Rx Participant: No New Discharge Prescriptions: New predniSONE 10 mg PO DIRECTED #30 tab Budesonide/Formoterol Fumarate [Symbicort 160-4.5 Mcg Inhaler] 1 puff IH BID 30 Days #10.2 gm Ipratropium-Albuterol Nebulize [Duoneb 0.5 mg-3 mg/3 ml Soln] 3 ml INHALATION RT-Q4H PRN #90 ml PRN Reason: Shortness Of Breath Or Wheezing Continue Phentermine HCl [Adipex-P] 37.5 mg PO HS Cholecalciferol [Vitamin D3 (25 Mcg = 1000 Iu)] 25 mcg PO HS Albuterol Sulfate [Ventolin HFA] 2 puff INHALATION RT-QID PRN PRN Reason: Shortness Of Breath Sertraline HCl [Zoloft] 100 mg PO HS Fexofenadine HCl [Sadia Allergy] 180 mg PO HS Discharge Medication List Albuterol Sulfate [Ventolin HFA] 2 puff INHALATION RT-QID PRN 01/25/21 [History] Cholecalciferol [Vitamin D3 (25 Mcg = 1000 Iu)] 25 mcg PO HS 01/25/21 [History] Fexofenadine HCl [Sadia Allergy] 180 mg PO HS 01/25/21 [History] Phentermine HCl [Adipex-P] 37.5 mg PO HS 01/25/21 [History] Sertraline HCl [Zoloft] 100 mg PO HS 01/25/21 [History] Budesonide/Formoterol Fumarate [Symbicort 160-4.5 Mcg Inhaler] 1 puff IH BID 30 Days #10.2 gm 01/27/21 [Rx] Ipratropium-Albuterol Nebulize [Duoneb 0.5 mg-3 mg/3 ml Soln] 3 ml INHALATION RT-Q4H PRN #90 ml 01/27/21 [Rx] predniSONE 10 mg PO DIRECTED #30 tab 01/27/21 [Rx] Follow up Appointment(s)/Referral(s): Jakob Shaw DO [Doctor of Osteopathic Medicine] - 2 Weeks (office not able to be reached during time of discharge an appointment. please call to make an appointment. ) Kevin Odell DO [Primary Care Provider] - 1-2 days (Called [facility] office, booked next 2days will call Julia with an appointment.) Activity/Diet/Wound Care/Special Instructions: Activity Limited until follow-up. diet as tolerated. fluids are encouraged. follow up with primary care provider on discharge. Continue medications as prescribed. Follow-up with pulmonary outpatient. Avoid tobacco and vaping. call physician with any questions comments concerns worsening returning symptoms, not tolerating a diet or fluids, pain not controlled, shortness of breath nto maintained by treatments and medications. Discharge Disposition: HOME SELF-CARE
== END 2021-01-27 15:32 | disposition home or self-care (01) ==
LOC: EC 12:02 → INTOOBSV 15:34 → 6PED 15:34 → UNDODISIN 01-27 15:32
PROVIDERS: ADMIT Internal Medicine; ATTEND Internal Medicine
DX: J45.32 Mild persistent asthma with status asthmaticus (principal); E87.6 Hypokalemia; E87.2 Acidosis; R09.02 Hypoxemia; F17.200 Nicotine dependence, unspecified, uncomplicated; F17.290 Nicotine dependence, other tobacco product, uncomplicated; Z20.822 Contact with and (suspected) exposure to COVID-19; F41.9 Anxiety disorder, unspecified; L30.9 Dermatitis, unspecified; F32.A Depression, unspecified; Z71.6 Tobacco abuse counseling; Z79.899 Other long term (current) drug therapy; Z88.0 Allergy status to penicillin; Z91.018 Allergy to other foods; Z82.49 Family history of ischemic heart disease and other diseases of the circulatory system; Z83.3 Family history of diabetes mellitus; Z81.8 Family history of other mental and behavioral disorders
CPT/HCPCS: 99291; 96361 ×4; 96372 ×2; 96376 ×3; 96374; 36415; 94640 ×6; 94760; 80053; 80048; 83605 ×3; 83735; 85025 ×2; 87040; 87635; 71046; G0378 ×3; J2930 ×3; J1644 ×2

== ENCOUNTER 2022-03-18 09:32 | Emergency (ER) | payer BC ==
[2022-03-18 09:38] VITALS: TEMP 98.7
[2022-03-18] MEDS ORDERED: METOCLOPRAMIDE 5 MG/ML 2 ML VIAL IVP STA (09:49)
[2022-03-18] MEDS ORDERED: SODIUM CHLORIDE 0.9% 1,000 ML IV STA (09:49)
[2022-03-18] MEDS ORDERED: KETOROLAC 15 MG/ML 1 ML VIAL IVP STA (09:49)
--- NOTE | 2022-03-18 09:51 | ED ---
General Adult HPI - General Chief complaint: Abdominal Pain Stated complaint: abd pain Time Seen by Provider: 03/18/22 09:41 Source: patient, RN notes reviewed Mode of arrival: ambulatory Limitations: no limitations - History of Present Illness Initial comments: Patient is a pleasant 31-year-old female presenting to the emergency department with concerns with abdominal discomfort. Onset of symptoms was around 5:30 this morning. Symptoms awake her up. Patient has had 3 other episodes in the past month. Discomfort is somewhat severe at this time. Discomfort is right upper abdomen. Patient has associated nausea. No fever. No vomiting. Patient had some loose stools yesterday. - Related Data Home Medications Medication Instructions Recorded Confirmed Albuterol Sulfate [Ventolin HFA] 2 puff INHALATION RT-QID PRN 01/25/21 01/25/21 Cholecalciferol [Vitamin D3 (25 25 mcg PO HS 01/25/21 01/25/21 Mcg = 1000 Iu)] Fexofenadine HCl [Sadia Allergy] 180 mg PO HS 01/25/21 01/25/21 Phentermine HCl [Adipex-P] 37.5 mg PO HS 01/25/21 01/25/21 Sertraline HCl [Zoloft] 100 mg PO HS 01/25/21 01/25/21 Previous Rx's Medication Instructions Recorded Budesonide/Formoterol Fumarate 1 puff IH BID 30 Days #10.2 gm 01/27/21 [Symbicort 160-4.5 Mcg Inhaler] Ipratropium-Albuterol Nebulize 3 ml INHALATION RT-Q4H PRN #90 ml 01/27/21 [Duoneb 0.5 mg-3 mg/3 ml Soln] predniSONE 10 mg PO DIRECTED #30 tab 01/27/21 Ketorolac [Toradol] 10 mg PO Q6HR PRN #15 tab 03/18/22 Metoclopramide HCl [Reglan] 10 mg PO Q6HR PRN #15 tablet 03/18/22 Allergies Allergy/AdvReac Type Severity Reaction Status Date / Time Penicillins Allergy Unknown Verified 03/18/22 09:38 Childhood sesame seed Allergy Anaphylaxis Verified 03/18/22 09:38 Review of Systems ROS Statement: Those systems with pertinent positive or pertinent negative responses have been documented in the HPI. ROS Other: All systems not noted in ROS Statement are negative. Constitutional: Denies: fever Eyes: Denies: eye pain ENT: Denies: ear pain Respiratory: Denies: cough Cardiovascular: Denies: chest pain Endocrine: Denies: fatigue Gastrointestinal: Reports: as per HPI, abdominal pain, nausea. Denies: vomiting Genitourinary: Denies: dysuria, hematuria Skin: Denies: rash Neurological: Denies: weakness Past Medical History Past Medical History: Asthma, Skin Disorder Additional Past Medical History / Comment(s): eczema History of Any Multi-Drug Resistant Organisms: None Reported Past Surgical History: No Surgical Hx Reported Additional Past Surgical History / Comment(s): wisdom teeth Past Anesthesia/Blood Transfusion Reactions: No Reported Reaction Past Psychological History: Anxiety, Depression Smoking Status: Current every day smoker, Vaper Past Alcohol Use History: Occasional Past Drug Use History: None Reported - Past Family History Father Family Medical History: Hypertension Additional Family Medical History / Comment(s): ETOH Mother Family Medical History: Diabetes Mellitus Additional Family Medical History / Comment(s): mental disorder undiagnosed, ETOH General Exam Limitations: no limitations General appearance: alert Head exam: Present: normocephalic Eye exam: Present: normal appearance Neck exam: Present: normal inspection Respiratory exam: Present: normal lung sounds bilaterally Cardiovascular Exam: Present: regular rate, normal rhythm Expanded Peripheral pulses: 2+: Dorsalis Pedis (R), Dorsalis Pedis (L) GI/Abdominal exam: Present: soft, tenderness (Moderate tenderness right upper quadrant). Absent: distended Extremities exam: Present: normal inspection. Absent: pedal edema Back exam: Present: normal inspection Neurological exam: Present: alert Psychiatric exam: Present: normal affect, normal mood Skin exam: Present: normal color Course Vital Signs 03/18/22 09:35 Temperature 98.7 F Pulse Rate 85 Respiratory 22 Rate Blood Pressure 148/104 O2 Sat by Pulse 99 Oximetry Medical Decision Making - Medical Decision Making Patient reevaluated and symptom-free. Patient and family updated on results and need for follow-up. - Lab Data Result diagrams: 03/18/22 09:53 03/18/22 09:53 Lab Results 03/18/22 03/18/22 03/18/22 Range/Units 09:53 09:53 09:53 WBC 9.6 (3.8-10.6) k/uL RBC 4.63 (3.80-5.40) m/uL Hgb 14.0 (11.4-16.0) gm/dL Hct 41.1 (34.0-46.0) % MCV 88.7 (80.0-100.0) fL MCH 30.2 (25.0-35.0) pg MCHC 34.0 (31.0-37.0) g/dL RDW 12.0 (11.5-15.5) % Plt Count 335 (150-450) k/uL MPV 7.4 Neutrophils % 65 % Lymphocytes % 23 % Monocytes % 7 % Eosinophils % 3 % Basophils % 1 % Neutrophils # 6.3 (1.3-7.7) k/uL Lymphocytes # 2.2 (1.0-4.8) k/uL Monocytes # 0.7 (0-1.0) k/uL Eosinophils # 0.3 (0-0.7) k/uL Basophils # 0.1 (0-0.2) k/uL PT 10.0 (9.0-12.0) sec INR 0.9 (<1.2) APTT 27.4 (22.0-30.0) sec Sodium 137 (137-145) mmol/L Potassium 4.4 (3.5-5.1) mmol/L Chloride 106 (98-107) mmol/L Carbon Dioxide 23 (22-30) mmol/L Anion Gap 8 mmol/L BUN 9 (7-17) mg/dL Creatinine 0.46 L (0.52-1.04) mg/dL Est GFR (CKD-EPI)AfAm >90 (>60 ml/min/1.73 sqM) Est GFR (CKD-EPI)NonAf >90 (>60 ml/min/1.73 sqM) Glucose 95 (74-99) mg/dL Calcium 9.0 (8.4-10.2) mg/dL Total Bilirubin 0.5 (0.2-1.3) mg/dL AST 77 H (14-36) U/L ALT 47 H (4-34) U/L Alkaline Phosphatase 60 (38-126) U/L Total Protein 7.3 (6.3-8.2) g/dL Albumin 4.4 (3.5-5.0) g/dL Amylase 39 (30-110) U/L Lipase 43 (23-300) U/L HCG, Qual 03/18/22 Range/Units 09:53 WBC (3.8-10.6) k/uL RBC (3.80-5.40) m/uL Hgb (11.4-16.0) gm/dL Hct (34.0-46.0) % MCV (80.0-100.0) fL MCH (25.0-35.0) pg MCHC (31.0-37.0) g/dL RDW (11.5-15.5) % Plt Count (150-450) k/uL MPV Neutrophils % % Lymphocytes % % Monocytes % % Eosinophils % % Basophils % % Neutrophils # (1.3-7.7) k/uL Lymphocytes # (1.0-4.8) k/uL Monocytes # (0-1.0) k/uL Eosinophils # (0-0.7) k/uL Basophils # (0-0.2) k/uL PT (9.0-12.0) sec INR (<1.2) APTT (22.0-30.0) sec Sodium (137-145) mmol/L Potassium (3.5-5.1) mmol/L Chloride (98-107) mmol/L Carbon Dioxide (22-30) mmol/L Anion Gap mmol/L BUN (7-17) mg/dL Creatinine (0.52-1.04) mg/dL Est GFR (CKD-EPI)AfAm (>60 ml/min/1.73 sqM) Est GFR (CKD-EPI)NonAf (>60 ml/min/1.73 sqM) Glucose (74-99) mg/dL Calcium (8.4-10.2) mg/dL Total Bilirubin (0.2-1.3) mg/dL AST (14-36) U/L ALT (4-34) U/L Alkaline Phosphatase (38-126) U/L Total Protein (6.3-8.2) g/dL Albumin (3.5-5.0) g/dL Amylase (30-110) U/L Lipase (23-300) U/L HCG, Qual Not Detected - Radiology Data Radiology results: report reviewed (Ultrasound shows gallstones) Interpreted by me: X-ray shows nonspecific abdomen Disposition Clinical Impression: Cholelithiasis Disposition: HOME SELF-CARE Condition: Stable Instructions (If sedation given, give patient instructions): Gallstones (ED) Additional Instructions: Please do follow-up with surgeon and primary care physician in the next couple days for recheck. Return for fever, increased pain, uncontrolled vomiting, worsening symptoms or any other concerns. Prescriptions have been sent to pharmacy. Prescriptions: Metoclopramide HCl [Reglan] 10 mg PO Q6HR PRN #15 tablet PRN Reason: Nausea Ketorolac [Toradol] 10 mg PO Q6HR PRN #15 tab PRN Reason: Pain Is patient prescribed a controlled substance at d/c from ED?: No Referrals: Kevin Odell DO [Primary Care Provider] - 1-2 days Alex Good MD [STAFF PHYSICIAN] - 1-2 days Time of Disposition: 11:13
[2022-03-18 10:03] LABS: Basophils # (A) 0.1 k/uL (0-0.2); Basophils % (A) 1 %; Eosinophils # (A) 0.3 k/uL (0-0.7); Eosinophils % (A) 3 %; HCT 41.1 % (34.0-46.0); Lymphocytes # (A) 2.2 k/uL (1.0-4.8); Lymphocytes % (A) 23 %; MCH 30.2 pg (25.0-35.0); MCV 88.7 fL (80.0-100.0); Mean Platelet Volume 7.4; Monocytes # (A) 0.7 k/uL (0-1.0); Monocytes % (A) 7 %; Neutrophils # (A) 6.3 k/uL (1.3-7.7); Neutrophils % (A) 65 %; Platelet Count 335 k/uL (150-450); RBC 4.63 m/uL (3.80-5.40); WBC 9.6 k/uL (3.8-10.6)
[2022-03-18 10:13] LABS: INR 0.9 (<1.2); Partial Thromboplastin Time 27.4 sec (22.0-30.0)
[2022-03-18 10:15] LABS: ALT 47 U/L (4-34); AST 77 U/L (14-36); African American GFR (CKD) >90 (>60 ml/min/1.73 sqM); Albumin 4.4 g/dL (3.5-5.0); Alkaline Phosphatase 60 U/L (38-126); Amylase 39 U/L (30-110); Anion Gap 8 mmol/L; Blood Urea Nitrogen 9 mg/dL (7-17); Carbon Dioxide 23 mmol/L (22-30); Chloride 106 mmol/L (98-107); Glucose 95 mg/dL (74-99); Lipase 43 U/L (23-300); Non-African American GFR(CKD) >90 (>60 ml/min/1.73 sqM); Potassium 4.4 mmol/L (3.5-5.1); Sodium 137 mmol/L (137-145); Total Bilirubin 0.5 mg/dL (0.2-1.3); Total Protein 7.3 g/dL (6.3-8.2)
--- NOTE | 2022-03-18 10:28 | XR ---
EXAMINATION TYPE: XR KUB DATE OF EXAM: 03/18/2022 COMPARISON: NONE HISTORY: Vomiting and nausea with abdominal pain TECHNIQUE: One view abdominal series FINDINGS: The osseous structures are intact. The bowel gas pattern is nonspecific. Scattered air-fluid levels are seen. A few prominent small bowel loops. Incidental note made of intrauterine device. IMPRESSION: 1. Nonspecific abdomen correlate for ileus or enteritis. Partial obstruction not excluded.
--- NOTE | 2022-03-18 10:57 | US ---
EXAMINATION TYPE: US gallbladder DATE OF EXAM: 03/18/2022 COMPARISON: NONE CLINICAL HISTORY: Abdominal pain. pain TECHNIQUE: Multiple sonographic images of the right upper quadrant are obtained. 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 Evidence for sonographic Pena's sign: No CBD: wnl Right Kidney: wnl Suboptimal evaluation of pancreas. No aneurysm in the visualized abdominal aorta. IVC is seen near th e hepatic dome. There are several mobile shadowing gallstones. No pericholecystic fluid or abnormal g allbladder wall thickening. Sonographic Pena's sign negative. No right-sided hydronephrosis. IMPRESSION: Gallstones without secondary ultrasound evidence for acute cholecystitis.
[2022-03-18 11:52] VITALS: BP 116/80; PULSE 64; RESP 18
== END 2022-03-18 11:52 | disposition home or self-care (01) ==
LOC: EC 09:32
DX: K80.20 Calculus of gallbladder without cholecystitis without obstruction (principal); J45.909 Unspecified asthma, uncomplicated; F41.9 Anxiety disorder, unspecified; F32.A Depression, unspecified; F17.200 Nicotine dependence, unspecified, uncomplicated; Z79.899 Other long term (current) drug therapy; Z88.0 Allergy status to penicillin; Z91.018 Allergy to other foods
CPT/HCPCS: 36415; 80053; 82150; 83690; 85025; 85610; 85730; 84703; 74018; 76705; 99284; 96374; 96375; 96361; J2765; J1885

== ENCOUNTER 2022-04-15 06:20 | Day surgery (SDC) | payer BC ==
[2022-04-12 12:03] VITALS: BMI 29.0
[~2022-04-15 06:20] MED LIST: ACETAMINOPHEN TAB 500 MG TAB PO PRN; HEPARIN SODIUM,PORCINE/PF 5,000 UNIT/0.5 ML SYRINGE SQ PRN
[2022-04-15] MEDS ORDERED: ONDANSETRON 4 MG/2 ML VIAL IVP ONE ×2 (06:41→08:54)
[2022-04-15] MEDS ORDERED: DEXAMETHASONE SOD PHOSPHATE 4 MG/ML 1 ML VIAL IV ONE (06:41)
[2022-04-15] MEDS ORDERED: MIDAZOLAM 2 MG/2 ML VIAL IV PRN (06:41)
[2022-04-15] MEDS ORDERED: LACTATED RINGERS 1,000 ML IV SCH (06:41)
[2022-04-15] MEDS ORDERED: SCOPOLAMINE 1 MG/72 HR PATCH TRANSDERM ONE (06:41)
[2022-04-15] MEDS ORDERED: MIDAZOLAM 2 MG/2 ML VIAL ONE (08:03)
[2022-04-15] MEDS ORDERED: SUCCINYLCHOLINE CHLORIDE 200 MG/10 ML VIAL IV ONE (08:03)
[2022-04-15] MEDS ORDERED: GLYCOPYRROLATE 0.2 MG/ML 2 ML VIAL ONE (08:03)
[2022-04-15] MEDS ORDERED: HYDROmorphone (PF) 1 MG/ML ONE (08:03)
[2022-04-15] MEDS ORDERED: ROCURONIUM 10 MG/ML (5 ML VIAL) IV ONE (08:03)
[2022-04-15] MEDS ORDERED: LIDOCAINE 2% INJ 20 MG/ML (2 ML VIAL) ONE (08:03)
[2022-04-15] MEDS ORDERED: PROPOFOL 10 MG/ML 20 ML VIAL IV ONE (08:03)
[2022-04-15] MEDS ORDERED: KETOROLAC 15 MG/ML 1 ML VIAL ONE (08:03)
[2022-04-15] MEDS ORDERED: fentaNYL (PF) 50 MCG/ML 2 ML AMP ONE (08:03)
[2022-04-15] MEDS ORDERED: NEOSTIGMINE 1 MG/ML 10 ML VIAL ONE (08:03)
[2022-04-15] MEDS ORDERED: BUPIVACAIN-EPI 0.25%-1:200,000 30 ML VIAL SQ ONE (08:29)
[2022-04-15] MEDS ORDERED: LACTATED RINGERS 1,000 ML IV ONE (08:45)
--- NOTE | 2022-04-15 08:51 | P.OP ---
Date of Procedure: 04/15/22 Preoperative Diagnosis: Cholelithiasis Postoperative Diagnosis: Cholelithiasis Procedure(s) Performed: Laparoscopic cholecystectomy Anesthesia: ALEX Surgeon: Alex Good Estimated Blood Loss (ml): 10 Pathology: other (Gallbladder) Condition: stable Disposition: PACU Description of Procedure: The patient was placed on the operating table. The patient received a general endotracheal tube anesthesia. The patients abdomen was prepped and draped in the usual sterile fashion. Through an infraumbilical stab incision, the fascia of the anterior abdominal wall was grasped with a pair of Kochers and then the Veress needle was placed in the peritoneal cavity. Position of the Veress needle was confirmed with positive drop test. The abdomen was then insufflated. After adequate insufflation, the 10 mm trocar was placed in the peritoneal cavity. Following this the laparoscope was placed in the peritoneal cavity. The patient was placed in the head-up, right side up position and then a 5 mm trocar was placed in the right lateral and right subcostal position under direct visualization. A 8 mm trocar was placed in the epigastric position. The gallbladder was grasped in the fundus and infundibulum. Traction on the gallbladder was placed in the lateral and the cephalad positions. The triangle of Calot was visualized.. The cystic duct was bluntly dissected until the union of the cystic duct and common bile duct was seen. A critical view of safety was achieved. The cystic duct was then divided and sealed with the Harmonic scissors. A PDS Endoloop was then placed throughout the cystic duct stump. The cystic artery divided and sealed with the Harmonic scissors. The gallbladder was then removed from the liver bed using Harmonic scissors. The gallbladder was then extracted through the epigastric port site. Operative field was checked for any bleeding spots and Harmonic scissors was used to coagulate the liver bed. The abdomen was irrigated. The trocars were removed. The skin was closed using interrupted 3-0 Vicryl suture. Dermabond dressing were applied. The patient tolerated the procedure well.
[2022-04-15] MEDS: HYDROmorphone 0.5 MG/0.5 ML SYRINGE IVP PRN ×2 (09:00→09:15)
[2022-04-15 09:08] VITALS: RESP 16; TEMP 97
[2022-04-15 10:43] VITALS: BP 113/71; PULSE 77
== END 2022-04-15 12:04 | disposition home or self-care (01) ==
LOC: OR 06:20
PROVIDERS: ATTEND Surgery
DX: K80.10 Calculus of gallbladder with chronic cholecystitis without obstruction (principal); Z88.0 Allergy status to penicillin; Z91.018 Allergy to other foods; J45.909 Unspecified asthma, uncomplicated; F32.A Depression, unspecified; F41.9 Anxiety disorder, unspecified; F17.200 Nicotine dependence, unspecified, uncomplicated; L30.9 Dermatitis, unspecified; Z79.51 Long term (current) use of inhaled steroids; Z79.899 Other long term (current) drug therapy; Z79.2 Long term (current) use of antibiotics; Z79.52 Long term (current) use of systemic steroids; Z79.1 Long term (current) use of non-steroidal anti-inflammatories (NSAID)
CPT/HCPCS: 47562; 81025; J2250; J0330; J1100; J2710; J0690; J2405; J3010; J1170 ×2; J1885; J2704; J1644; J2001; 88304

== ENCOUNTER → 2022-11-22 | Outpatient (CLI) | payer SELFPAY | END | disposition home or self-care (01) | LOC: LABWHC1 09:49 | DX: Z53.9 Procedure and treatment not carried out, unspecified reason (principal) ==

== ENCOUNTER → 2024-09-12 | Outpatient (CLI) | payer BC ==
[2024-09-12 15:42] LABS: ALT 40 U/L (8-44); AST 30 U/L (13-35); Albumin 4.2 g/dL (3.8-4.9); Albumin/Globulin Ratio 1.75 Ratio (1.60-3.17); Alkaline Phosphatase 42 U/L (41-126); BUN/Creat Ratio 16.57 Ratio (12.00-20.00); Blood Urea Nitrogen 11.6 mg/dL (9.0-27.0); Calcium 9.3 mg/dL (8.7-10.3); Carbon Dioxide 24.6 mmol/L (21.6-31.8); Chloride 104 mmol/L (96-109); Chol/HDL Ratio 3.88 Ratio; Globulin 2.4 g/dL (1.6-3.3); Glucose 94 mg/dL (70-110); LDL Cholesterol,Calculated 112.6 mg/dL (0.0-131.0); Potassium 3.9 mmol/L (3.5-5.5); Sodium 140 mmol/L (135-145); Total Bilirubin 0.4 mg/dL (0.3-1.2); Total Protein 6.6 g/dL (6.2-8.2)
[2024-09-12 16:17] LABS: Basophils % (A) 1.3 %; Eosinophils # (A) 1.35 X 10*3/uL (0.04-0.35); Eosinophils % (A) 16.9 %; HCT 43.4 % (37.2-46.3); HGB 13.5 g/dL (12.0-15.0); Lymphocytes # (A) 2.56 X 10*3/uL (0.90-5.00); MCH 28.6 pg (27.0-32.0); MCHC 31.1 g/dL (32.0-37.0); MCV 91.9 FL (80.0-97.0); Mean Platelet Volume 9.7 FL (9.5-12.2); Monocytes # (A) 0.65 X 10*3/uL (0.20-1.00); Monocytes % (A) 8.1 %; NRBC Per 100 WBC 0 X 10*3/uL (0.00-0.01); Neutrophils # (A) 3.33 X 10*3/uL (1.80-7.70); Neutrophils % (A) 41.6 %; Platelet Count 356 X 10*3/uL (140-440); RBC 4.72 X 10*6/uL (4.10-5.20)
== END | disposition home or self-care (01) ==
LOC: LABWHC1 09:13
PROVIDERS: ATTEND Nurse Practitioner Family
DX: Z00.00 Encounter for general adult medical examination without abnormal findings (principal); E66.9 Obesity, unspecified
CPT/HCPCS: 36415; 80053; 80061; 83036; 84439; 84443; 84481; 85025